=== PATIENT | female | born 1975 | race Caucasian/White ===

== ENCOUNTER 2017-09-08 14:33 | Emergency (ER) | payer OTHER ==
[~2017-09-08 14:33] MED LIST: ACET325 PO; ALBU90OI INH; ALPR1 PO; BCP; CHLO100 PO; CLON.1 PO; CODGUAEL PO; CYCL10 PO; DOXY100 PO; DULO60 PO; ESTR2 PO; FISH1000 PO; GABA100 PO; GABA300 PO; HYDACE5 PO; HYDPAM50 PO; NAPR500 PO; OMEP20ER PO; ORACON PO; OXYACE5T PO; OXYC1TAB11 PO; PROP10 PO; QUET300 PO; RESPIRDAL; RESTLESS LEG MED; RISP2 PO; RXCYCL10 PO; Restoril30 MG PO; SAPHRIS; TOLT2ER PO; ZOLP10 PO; [UNRECOGNIZED DRUG - REMARK]
== END 2017-09-08 15:10 | disposition left against medical advice (07) ==
LOC: ER 14:33
DX: Z53.21 Procedure and treatment not carried out due to patient leaving prior to being seen by health care provider (principal)

== ENCOUNTER 2017-12-05 05:57 | Day surgery (SDC) | payer MEDICARE, OTHER ==
[~2017-12-05] VITALS: Ht 170.2 cm; Wt 107.0 kg
[~2017-12-05 05:57] MED LIST changes: +ARIP20 PO; +ARIP30 PO; +LITH300C PO; +LORA1 PO; +MIRT15 PO; +MUPIROCIN1 GM TOP
== END 2017-12-05 10:29 | disposition home or self-care (01) ==
LOC: ORSCMMR 05:57 → ORD 07:30 → ORSCMMR 10:29
PROVIDERS: Surgery
PROC: 0WUF0JZ Supplement Abdominal Wall with Synthetic Substitute, Open Approach (ICD-10-PCS; principal; 2017-12-05 07:30)
DX: K42.9 Umbilical hernia without obstruction or gangrene (principal); B19.20 Unspecified viral hepatitis C without hepatic coma; F31.9 Bipolar disorder, unspecified; E78.00 Pure hypercholesterolemia, unspecified; F17.210 Nicotine dependence, cigarettes, uncomplicated; Z79.899 Other long term (current) drug therapy
CPT/HCPCS: 88305; C1781; J0690; J1100; J1885; J2250; J2405; J3010; J7120

== ENCOUNTER 2017-12-13 11:58 | Emergency (ER) | payer MEDICARE, OTHER ==
[~2017-12-13] VITALS: Ht 170.2 cm; Wt 90.7 kg
[2017-12-13] MEDS ORDERED: ARIP10 PO (12:07)
[2017-12-13 12:42] LABS: BASOPHILS ABSOLUTE AUTO 0.08 K/mm3 (0.00-0.23); BASOPHILS PERCENT AUTO 1 % (0-2); EOSINOPHILS ABSOLUTE AUTO 0.39 K/mm3 (0.00-0.68); EOSINOPHILS PERCENT AUTO 4 % (0-6); Hematocrit 46.5 % (33.0-51.0); Hemoglobin 15.6 g/dL (11.5-16.0); IMMATURE GRAN ABSOLUTE AUTO 0.05 K/mm3 (0.00-0.10); IMMATURE GRAN PERCENT AUTO 1 % (0-1); LYMPHOCYTES PERCENT AUTO 17 % (21-46); MONOCYTES ABSOLUTE AUTO 0.89 K/mm3 (0.16-1.47); MONOCYTES PERCENT AUTO 8 % (4-13); Mean Corpuscular HGB 29.5 pg (26.0-34.0); Mean Corpuscular HGB Conc 33.5 g/dL (31.5-36.5); Mean Corpuscular Volume 88 fL (80-100); Mean Platelet Volume 9.6 fL (9.1-12.4); NEUTROPHILS ABSOLUTE AUTO 7.69 K/mm3 (1.96-9.15); NEUTROPHILS PERCENT AUTO 71 % (41-73); Platelet Count 422 K/mm3 (150-400); RDW Coefficient Variation 12.2 % (11.7-14.2); RDW Standard Deviation 39.2 fL (35.1-46.3); Red Blood Cell Count 5.28 M/mm3 (3.80-5.20)
[2017-12-13 12:58] LABS: Alanine Aminotransfer (ALT/SGP 61 U/L (12-78); Albumin, Blood 3.8 g/dL (3.4-5.0); Alk Phos 78 U/L (50-136); Anion Gap 7 mmol/L (6-16); Aspartate Aminotrans (AST/SGOT 38 U/L (12-37); Bilirubin, Total 1.4 mg/dL (0.1-1.0); Blood Urea Nitrogen 11 mg/dL (8-24); Bun/Creatinine Ratio 12.5 (12.0-20.0); CO2, Blood 27 mmol/L (21-32); Calcium, Blood 9.7 mg/dL (8.5-10.1); Chloride, Blood 102 mmol/L (98-108); Creatinine, Blood 0.88 mg/dL (0.40-1.00); Globulin, Blood 3.9 g/dL (2.2-4.0); Glomerular Filtration Rate >60 (60-); Glucose, Blood 91 mg/dL (70-99); Potassium, Blood 4.1 mmol/L (3.5-5.5); Sodium, Blood 136 mmol/L (136-145); Total Protein, Blood 7.7 g/dL (6.4-8.2)
[2017-12-13] MEDS ORDERED: Zofran4 MG PO (14:33)
== END 2017-12-13 14:58 | disposition home or self-care (01) ==
LOC: ER 11:58
PROVIDERS: Emergency Medicine
DX: G89.18 Other acute postprocedural pain (principal); R10.9 Unspecified abdominal pain; R11.2 Nausea with vomiting, unspecified; Z98.890 Other specified postprocedural states; Z88.2 Allergy status to sulfonamides; Z88.8 Allergy status to other drugs, medicaments and biological substances; Z79.899 Other long term (current) drug therapy; F31.9 Bipolar disorder, unspecified; F20.9 Schizophrenia, unspecified; F17.200 Nicotine dependence, unspecified, uncomplicated
CPT/HCPCS: 36415; 80053; 85025; 96361; 96374; 99283-25; J2405; J7030

== ENCOUNTER → 2017-12-15 | Outpatient (CLI) | payer MEDICARE, OTHER ==
[~2017-12-15] MED LIST changes: +ARIP10 PO; +Zofran4 MG PO
[2017-12-15 10:43] LABS: BASOPHILS PERCENT AUTO 1 % (0-2); EOSINOPHILS ABSOLUTE AUTO 0.41 K/mm3 (0.00-0.68); EOSINOPHILS PERCENT AUTO 5 % (0-6); Hematocrit 42.9 % (33.0-51.0); Hemoglobin 14.8 g/dL (11.5-16.0); IMMATURE GRAN ABSOLUTE AUTO 0.05 K/mm3 (0.00-0.10); IMMATURE GRAN PERCENT AUTO 1 % (0-1); LYMPHOCYTES ABSOLUTE AUTO 1.78 K/mm3 (0.84-5.20); LYMPHOCYTES PERCENT AUTO 21 % (21-46); MONOCYTES ABSOLUTE AUTO 0.74 K/mm3 (0.16-1.47); MONOCYTES PERCENT AUTO 9 % (4-13); Mean Corpuscular HGB 30.5 pg (26.0-34.0); Mean Corpuscular HGB Conc 34.5 g/dL (31.5-36.5); Mean Corpuscular Volume 89 fL (80-100); Mean Platelet Volume 9.7 fL (9.1-12.4); NEUTROPHILS ABSOLUTE AUTO 5.27 K/mm3 (1.96-9.15); NEUTROPHILS PERCENT AUTO 63 % (41-73); Platelet Count 393 K/mm3 (150-400); RDW Coefficient Variation 12.8 % (11.7-14.2); RDW Standard Deviation 41.4 fL (35.1-46.3); Red Blood Cell Count 4.85 M/mm3 (3.80-5.20); White Blood Cell Count 8.35 K/mm3 (4.00-11.30)
[2017-12-15 11:03] LABS: Alanine Aminotransfer (ALT/SGP 46 U/L (12-78); Albumin, Blood 3.6 g/dL (3.4-5.0); Albumin/Globulin Ratio 1.2 (0.8-1.8); Alk Phos 70 U/L (40-126); Anion Gap 10 mmol/L (6-16); Aspartate Aminotrans (AST/SGOT 25 U/L (12-37); Bilirubin, Total 0.7 mg/dL (0.1-1.0); Blood Urea Nitrogen 11 mg/dL (8-24); Bun/Creatinine Ratio 12.1 (12.0-20.0); CO2, Blood 25 mmol/L (21-32); Calcium, Blood 9.6 mg/dL (8.5-10.1); Chloride, Blood 105 mmol/L (98-108); Creatinine, Blood 0.91 mg/dL (0.40-1.00); Globulin, Blood 3.1 g/dL (2.2-4.0); Glomerular Filtration Rate >60 (60-); Glucose, Blood 100 mg/dL (70-99); Potassium, Blood 4.2 mmol/L (3.5-5.5); Sodium, Blood 140 mmol/L (136-145); Thyroid Stimulating Hormone 2.446 uIU/mL (0.360-4.800); Total Protein, Blood 6.7 g/dL (6.4-8.2)
== END | disposition home or self-care (01) ==
LOC: LAB SHORT 10:35 → LAB EV 10:35
PROVIDERS: Physician Assistant
DX: R53.83 Other fatigue (principal); R20.2 Paresthesia of skin
CPT/HCPCS: 80053; 82607; 82746; 84443; 85025

== ENCOUNTER 2017-12-28 14:58 | Emergency (ER) | payer MEDICARE, OTHER ==
[~2017-12-28] VITALS: Ht 170.2 cm; Wt 99.8 kg
[2017-12-28 16:25] LABS: BASOPHILS PERCENT AUTO 1 % (0-2); EOSINOPHILS ABSOLUTE AUTO 0.72 K/mm3 (0.00-0.68); EOSINOPHILS PERCENT AUTO 6 % (0-6); Hematocrit 44.4 % (33.0-51.0); Hemoglobin 15.2 g/dL (11.5-16.0); IMMATURE GRAN ABSOLUTE AUTO 0.05 K/mm3 (0.00-0.10); IMMATURE GRAN PERCENT AUTO 0 % (0-1); LYMPHOCYTES ABSOLUTE AUTO 2.26 K/mm3 (0.84-5.20); LYMPHOCYTES PERCENT AUTO 20 % (21-46); MONOCYTES ABSOLUTE AUTO 0.74 K/mm3 (0.16-1.47); MONOCYTES PERCENT AUTO 7 % (4-13); Mean Corpuscular HGB 30.5 pg (26.0-34.0); Mean Corpuscular HGB Conc 34.2 g/dL (31.5-36.5); Mean Corpuscular Volume 89 fL (80-100); Mean Platelet Volume 9.2 fL (9.1-12.4); NEUTROPHILS PERCENT AUTO 66 % (41-73); Platelet Count 417 K/mm3 (150-400); RDW Coefficient Variation 12.6 % (11.7-14.2); RDW Standard Deviation 41.3 fL (35.1-46.3); Red Blood Cell Count 4.98 M/mm3 (3.80-5.20); White Blood Cell Count 11.27 K/mm3 (4.00-11.30)
[2017-12-28 16:49] LABS: Alanine Aminotransfer (ALT/SGP 53 U/L (12-78); Albumin, Blood 3.6 g/dL (3.4-5.0); Alk Phos 75 U/L (50-136); Anion Gap 7 mmol/L (6-16); Aspartate Aminotrans (AST/SGOT 32 U/L (12-37); Blood Urea Nitrogen 10 mg/dL (8-24); Bun/Creatinine Ratio 9.9 (12.0-20.0); CO2, Blood 26 mmol/L (21-32); Calcium, Blood 9.1 mg/dL (8.5-10.1); Chloride, Blood 106 mmol/L (98-108); Creatinine, Blood 1.01 mg/dL (0.40-1.00); Ethanol (Alcohol), Blood, Med <3 mg/dL; Free Thyroxine 0.95 ng/dL (0.70-1.60); Globulin, Blood 3.6 g/dL (2.2-4.0); Glomerular Filtration Rate >60 (60-); Glucose, Blood 94 mg/dL (70-99); Potassium, Blood 3.8 mmol/L (3.5-5.5); Salicylate <1.7 mg/dL (2.8-20.0); Sodium, Blood 139 mmol/L (136-145); Total Protein, Blood 7.2 g/dL (6.4-8.2)
[2017-12-28 16:54] LABS: Acetaminophen, Random <2.0 ug/mL (10.0-30.0)
== END 2017-12-28 17:54 | disposition home or self-care (01) ==
LOC: ER 14:58
PROVIDERS: Physician Assistant
DX: R79.89 Other specified abnormal findings of blood chemistry (principal); F31.9 Bipolar disorder, unspecified; F20.9 Schizophrenia, unspecified; F17.210 Nicotine dependence, cigarettes, uncomplicated; Z88.8 Allergy status to other drugs, medicaments and biological substances; Z88.2 Allergy status to sulfonamides; Z79.899 Other long term (current) drug therapy
CPT/HCPCS: 36415; 80053; 84439; 84443; 85025; 93005; 93010; 96361; 96374; 99283-25; G0480; J2405; J7030

== ENCOUNTER → 2017-12-28 | Outpatient (CLI) | payer MEDICARE, OTHER ==
[2017-12-28 14:09] LABS: Lithium 1.85 mmol/L (0.60-1.20)
== END | disposition home or self-care (01) ==
LOC: LAB SHORT 13:08 → LAB EV 13:08
PROVIDERS: Physician Assistant
DX: F30.9 Manic episode, unspecified (principal)
CPT/HCPCS: 80178

== ENCOUNTER → 2018-01-02 | Outpatient (CLI) | payer MEDICARE, OTHER ==
[2018-01-02 12:54] LABS: BASOPHILS ABSOLUTE AUTO 0.09 K/mm3 (0.00-0.23); BASOPHILS PERCENT AUTO 1 % (0-2); EOSINOPHILS ABSOLUTE AUTO 0.25 K/mm3 (0.00-0.68); EOSINOPHILS PERCENT AUTO 4 % (0-6); Hematocrit 43.8 % (33.0-51.0); Hemoglobin 14.7 g/dL (11.5-16.0); IMMATURE GRAN ABSOLUTE AUTO 0.03 K/mm3 (0.00-0.10); IMMATURE GRAN PERCENT AUTO 0 % (0-1); LYMPHOCYTES ABSOLUTE AUTO 1.44 K/mm3 (0.84-5.20); LYMPHOCYTES PERCENT AUTO 20 % (21-46); MONOCYTES ABSOLUTE AUTO 0.62 K/mm3 (0.16-1.47); MONOCYTES PERCENT AUTO 9 % (4-13); Mean Corpuscular HGB 29.8 pg (26.0-34.0); Mean Corpuscular HGB Conc 33.6 g/dL (31.5-36.5); Mean Corpuscular Volume 89 fL (80-100); Mean Platelet Volume 9.5 fL (9.1-12.4); NEUTROPHILS ABSOLUTE AUTO 4.68 K/mm3 (1.96-9.15); NEUTROPHILS PERCENT AUTO 66 % (41-73); Platelet Count 459 K/mm3 (150-400); RDW Coefficient Variation 12.7 % (11.7-14.2); RDW Standard Deviation 41.5 fL (35.1-46.3); Red Blood Cell Count 4.93 M/mm3 (3.80-5.20); White Blood Cell Count 7.11 K/mm3 (4.00-11.30)
[2018-01-02 13:14] LABS: Alanine Aminotransfer (ALT/SGP 49 U/L (12-78); Albumin, Blood 3.8 g/dL (3.4-5.0); Albumin/Globulin Ratio 1.1 (0.8-1.8); Alk Phos 74 U/L (50-136); Anion Gap 10 mmol/L (6-16); Aspartate Aminotrans (AST/SGOT 32 U/L (12-37); Bilirubin, Total 0.9 mg/dL (0.1-1.0); Blood Urea Nitrogen 13 mg/dL (8-24); Bun/Creatinine Ratio 17.3 (12.0-20.0); CO2, Blood 23 mmol/L (21-32); Calcium, Blood 9.2 mg/dL (8.5-10.1); Chloride, Blood 108 mmol/L (98-108); Creatinine, Blood 0.75 mg/dL (0.40-1.00); Globulin, Blood 3.5 g/dL (2.2-4.0); Glomerular Filtration Rate >60 (60-); Glucose, Blood 95 mg/dL (70-99); Potassium, Blood 3.9 mmol/L (3.5-5.5); Sodium, Blood 141 mmol/L (136-145); Total Protein, Blood 7.3 g/dL (6.4-8.2)
[2018-01-02 13:18] LABS: Lithium <0.20 mmol/L (0.60-1.20)
== END ==
LOC: LAB SHORT 11:30
PROVIDERS: Registered Nurse
DX: Z51.81 Encounter for therapeutic drug level monitoring (principal); Z79.899 Other long term (current) drug therapy
CPT/HCPCS: 80053; 80178; 85025

== ENCOUNTER → 2018-02-16 | Outpatient (CLI) | payer MEDICARE, OTHER ==
[2018-02-16 09:57] LABS: BASOPHILS ABSOLUTE AUTO 0.06 K/mm3 (0.00-0.23); BASOPHILS PERCENT AUTO 1 % (0-2); EOSINOPHILS ABSOLUTE AUTO 0.22 K/mm3 (0.00-0.68); EOSINOPHILS PERCENT AUTO 3 % (0-6); Hematocrit 42.5 % (33.0-51.0); Hemoglobin 14.6 g/dL (11.5-16.0); IMMATURE GRAN ABSOLUTE AUTO 0.03 K/mm3 (0.00-0.10); IMMATURE GRAN PERCENT AUTO 0 % (0-1); LYMPHOCYTES ABSOLUTE AUTO 1.33 K/mm3 (0.84-5.20); LYMPHOCYTES PERCENT AUTO 20 % (21-46); MONOCYTES ABSOLUTE AUTO 0.58 K/mm3 (0.16-1.47); MONOCYTES PERCENT AUTO 9 % (4-13); Mean Corpuscular HGB 31.1 pg (26.0-34.0); Mean Corpuscular HGB Conc 34.4 g/dL (31.5-36.5); Mean Corpuscular Volume 90 fL (80-100); Mean Platelet Volume 9.2 fL (9.1-12.4); NEUTROPHILS ABSOLUTE AUTO 4.51 K/mm3 (1.96-9.15); NEUTROPHILS PERCENT AUTO 67 % (41-73); Platelet Count 355 K/mm3 (150-400); RDW Coefficient Variation 12.6 % (11.7-14.2); RDW Standard Deviation 41.9 fL (35.1-46.3); White Blood Cell Count 6.73 K/mm3 (4.00-11.30)
[2018-02-16 10:21] LABS: Alanine Aminotransfer (ALT/SGP 57 U/L (12-78); Albumin, Blood 3.8 g/dL (3.4-5.0); Albumin/Globulin Ratio 1.1 (0.8-1.8); Alk Phos 57 U/L (40-126); Anion Gap 8 mmol/L (6-16); Aspartate Aminotrans (AST/SGOT 37 U/L (12-37); Bilirubin, Total 1.1 mg/dL (0.1-1.0); Blood Urea Nitrogen 16 mg/dL (8-24); Bun/Creatinine Ratio 18.2 (12.0-20.0); CO2, Blood 28 mmol/L (21-32); Calcium, Blood 9.2 mg/dL (8.5-10.1); Chloride, Blood 103 mmol/L (98-108); Creatinine, Blood 0.88 mg/dL (0.40-1.00); Globulin, Blood 3.4 g/dL (2.2-4.0); Glomerular Filtration Rate >60 (60-); Glucose, Blood 86 mg/dL (70-99); Potassium, Blood 3.9 mmol/L (3.5-5.5); Sodium, Blood 139 mmol/L (136-145); Total Protein, Blood 7.2 g/dL (6.4-8.2); Troponin I <0.017 ng/mL (0.000-0.040)
== END | disposition home or self-care (01) ==
LOC: LAB SHORT 09:49 → LAB EV 09:49
PROVIDERS: Physician Assistant
DX: R07.9 Chest pain, unspecified (principal); R00.2 Palpitations
CPT/HCPCS: 80053; 84443; 84484; 85025

== ENCOUNTER → 2018-02-21 | Outpatient (CLI) | payer MEDICARE, OTHER ==
[2018-02-22 09:49] LABS: Candida species (DNA Probe) Negative (NEGATIVE); G. vaginalis (DNA Probe) Negative (NEGATIVE); T. vaginalis (DNA Probe) Negative (NEGATIVE)
== END ==
LOC: LAB SHORT 17:16 → LAB EV 17:16
PROVIDERS: Physician Assistant
DX: N89.8 Other specified noninflammatory disorders of vagina (principal)
CPT/HCPCS: 87070; 87205; 87480; 87510; 87660

== ENCOUNTER 2018-04-10 11:45 | Observation (INO) | payer MEDICARE, OTHER ==
[~2018-04-10] VITALS: Ht 170.2 cm; Wt 104.3 kg
[~2018-04-10 11:45] MED LIST changes: +HYDPAM25 PO; +MONDOXYNE NL100 MG PO; +Macrobid 100 M100 MG PO; +Permethrin60 GM; +Permethrin60 GM TOP; +TEMA7.5 PO
[2018-04-10 14:19] LABS: Source, Urine Clean Catch
[2018-04-10 14:36] LABS: Appearance, Urine Clear (Clear); Bilirubin, Urine Neg (Neg); Blood, Urine Neg (Neg); Color, Urine Yellow (P-Yellow); Glucose Qualitative, Urine Neg (Neg); Ketones, Urine Neg (Neg); Leukocyte Esterase, Urine Neg (Neg); Nitrite, Urine Neg (Neg); Protein, Urine Neg (Neg); Specific Gravity, Urine 1.005 (1.003-1.022); Urobilinogen, Urine NORM (Normal); pH, Urine 6.5 (5.0-8.0)
[2018-04-10 14:43] LABS: BASOPHILS ABSOLUTE AUTO 0.08 K/mm3 (0.00-0.23); BASOPHILS PERCENT AUTO 1 % (0-2); EOSINOPHILS ABSOLUTE AUTO 0.23 K/mm3 (0.00-0.68); EOSINOPHILS PERCENT AUTO 3 % (0-6); Hematocrit 43.1 % (33.0-51.0); Hemoglobin 14.4 g/dL (11.5-16.0); IMMATURE GRAN ABSOLUTE AUTO 0.04 K/mm3 (0.00-0.10); IMMATURE GRAN PERCENT AUTO 1 % (0-1); LYMPHOCYTES ABSOLUTE AUTO 2.09 K/mm3 (0.84-5.20); LYMPHOCYTES PERCENT AUTO 29 % (21-46); MONOCYTES PERCENT AUTO 7 % (4-13); Mean Corpuscular HGB 30.3 pg (26.0-34.0); Mean Corpuscular HGB Conc 33.4 g/dL (31.5-36.5); Mean Corpuscular Volume 91 fL (80-100); NEUTROPHILS ABSOLUTE AUTO 4.32 K/mm3 (1.96-9.15); NEUTROPHILS PERCENT AUTO 59 % (41-73); Platelet Count 417 K/mm3 (150-400); RDW Standard Deviation 39.7 fL (35.1-46.3); Red Blood Cell Count 4.75 M/mm3 (3.80-5.20); White Blood Cell Count 7.26 K/mm3 (4.00-11.30)
[2018-04-10 15:05] LABS: Alanine Aminotransfer (ALT/SGP 85 U/L (12-78); Albumin, Blood 3.8 g/dL (3.4-5.0); Albumin/Globulin Ratio 1.1 (0.8-1.8); Alk Phos 71 U/L (50-136); Anion Gap 6 mmol/L (6-16); Aspartate Aminotrans (AST/SGOT 58 U/L (12-37); Bilirubin, Total 0.6 mg/dL (0.1-1.0); Blood Urea Nitrogen 16 mg/dL (8-24); Bun/Creatinine Ratio 18.3 (12.0-20.0); CO2, Blood 28 mmol/L (21-32); Calcium, Blood 9.3 mg/dL (8.5-10.1); Chloride, Blood 107 mmol/L (98-108); Creatinine, Blood 0.87 mg/dL (0.40-1.00); Ethanol (Alcohol), Blood, Med <3 mg/dL; Globulin, Blood 3.6 g/dL (2.2-4.0); Glomerular Filtration Rate >60 (60-); Glucose, Blood 79 mg/dL (70-99); Potassium, Blood 4.1 mmol/L (3.5-5.5); Salicylate <1.7 mg/dL (2.8-20.0); Sodium, Blood 141 mmol/L (136-145); Total Protein, Blood 7.4 g/dL (6.4-8.2)
[2018-04-10 15:12] LABS: Acetaminophen, Random <2.0 ug/mL (10.0-30.0)
[2018-04-10 15:16] LABS: U Amphetamine Screen Not Detected; U Barbituate Screen Not Detected; U Benzodiazapine Screen DETECTED; U Buprenorphine Screen Not Detected; U Cannabinoids Screen Not Detected; U Cocaine Screen Not Detected; U Methadone Screen Not Detected; U Methamphetamine Screen Not Detected; U Opiates Screen Not Detected; U Oxycodone Screen Not Detected; U Phencyclidine Screen Not Detected; U Propoxyphene Screen Not Detected
[2018-04-11] MEDS ORDERED: LATUDA40 MG PO (10:28)
== END 2018-04-11 10:38 | disposition home or self-care (01) ==
LOC: ER 11:45 → EOR 11:46
PROVIDERS: Emergency Medicine
DX: R45.851 Suicidal ideations (principal); F31.4 Bipolar disorder, current episode depressed, severe, without psychotic features; F20.9 Schizophrenia, unspecified; F43.10 Post-traumatic stress disorder, unspecified; F60.3 Borderline personality disorder; F17.200 Nicotine dependence, unspecified, uncomplicated; Z88.2 Allergy status to sulfonamides; Z88.8 Allergy status to other drugs, medicaments and biological substances
CPT/HCPCS: 80053; 80178; 81003; 81025; 84439; 84443; 85025; 99285; G0378; G0480; Q3014

== ENCOUNTER → 2018-08-01 | Outpatient (CLI) | payer MEDICARE, OTHER ==
[~2018-08-01] MED LIST changes: +LATUDA40 MG PO; +ONDA4ODT MM
[2018-08-02 08:43] LABS: Candida species (DNA Probe) Negative (NEGATIVE); G. vaginalis (DNA Probe) Negative (NEGATIVE); T. vaginalis (DNA Probe) Negative (NEGATIVE)
== END ==
LOC: LAB SHORT 11:30 → LAB EV 11:30
PROVIDERS: Physician Assistant
DX: N39.0 Urinary tract infection, site not specified (principal); B37.3 Candidiasis of vulva and vagina; Z72.51 High risk heterosexual behavior
CPT/HCPCS: 87077; 87086; 87186; 87480; 87510; 87660

== ENCOUNTER 2018-09-21 20:59 | Emergency (ER) | payer MEDICARE, OTHER ==
[~2018-09-21] VITALS: Ht 170.2 cm; Wt 113.4 kg
== END 2018-09-21 22:38 | disposition home or self-care (01) ==
LOC: ER 20:59
DX: S51.851A Open bite of right forearm, initial encounter (principal); W54.0XXA Bitten by dog, initial encounter; Z88.2 Allergy status to sulfonamides; Z88.8 Allergy status to other drugs, medicaments and biological substances; Z79.899 Other long term (current) drug therapy; F31.9 Bipolar disorder, unspecified; F20.9 Schizophrenia, unspecified; Z87.891 Personal history of nicotine dependence
CPT/HCPCS: 12002; 90471; 90714; 99283-25; A9270

== ENCOUNTER 2018-10-06 18:42 | Emergency (ER) | payer MEDICARE, OTHER ==
[~2018-10-06] VITALS: Ht 170.2 cm; Wt 122.0 kg
[2018-10-06 20:41] LABS: BASOPHILS ABSOLUTE AUTO 0.09 K/mm3 (0.00-0.23); BASOPHILS PERCENT AUTO 1 % (0-2); EOSINOPHILS ABSOLUTE AUTO 0.23 K/mm3 (0.00-0.68); EOSINOPHILS PERCENT AUTO 3 % (0-6); Hematocrit 43.1 % (33.0-51.0); Hemoglobin 14.2 g/dL (11.5-16.0); IMMATURE GRAN ABSOLUTE AUTO 0.03 K/mm3 (0.00-0.10); IMMATURE GRAN PERCENT AUTO 0 % (0-1); LYMPHOCYTES ABSOLUTE AUTO 2.57 K/mm3 (0.84-5.20); LYMPHOCYTES PERCENT AUTO 32 % (21-46); MONOCYTES PERCENT AUTO 9 % (4-13); Mean Corpuscular HGB Conc 32.9 g/dL (31.5-36.5); Mean Corpuscular Volume 91 fL (80-100); Mean Platelet Volume 9.4 fL (9.1-12.4); NEUTROPHILS ABSOLUTE AUTO 4.32 K/mm3 (1.96-9.15); NEUTROPHILS PERCENT AUTO 54 % (41-73); Platelet Count 424 K/mm3 (150-400); RDW Coefficient Variation 12.3 % (11.7-14.2); RDW Standard Deviation 41.1 fL (35.1-46.3); Red Blood Cell Count 4.73 M/mm3 (3.80-5.20); White Blood Cell Count 7.94 K/mm3 (4.00-11.30)
[2018-10-06 20:58] LABS: Alanine Aminotransfer (ALT/SGP 55 U/L (12-78); Albumin, Blood 3.9 g/dL (3.4-5.0); Albumin/Globulin Ratio 1.1 (0.8-1.8); Alk Phos 63 U/L (50-136); Anion Gap 7 mmol/L (6-16); Aspartate Aminotrans (AST/SGOT 37 U/L (12-37); Bilirubin, Total 0.4 mg/dL (0.1-1.0); Blood Urea Nitrogen 19 mg/dL (8-24); Bun/Creatinine Ratio 20.5 (12.0-20.0); CO2, Blood 27 mmol/L (21-32); Calcium, Blood 9.4 mg/dL (8.5-10.1); Chloride, Blood 107 mmol/L (98-108); Creatinine, Blood 0.93 mg/dL (0.40-1.00); Globulin, Blood 3.6 g/dL (2.2-4.0); Glomerular Filtration Rate >60 (60-); Glucose, Blood 86 mg/dL (70-99); Sodium, Blood 141 mmol/L (136-145); Total Protein, Blood 7.5 g/dL (6.4-8.2)
== END 2018-10-06 21:50 | disposition home or self-care (01) ==
LOC: ER 18:42
PROVIDERS: Physician Assistant
DX: G43.909 Migraine, unspecified, not intractable, without status migrainosus (principal); F31.9 Bipolar disorder, unspecified; F20.9 Schizophrenia, unspecified; Z88.2 Allergy status to sulfonamides; Z88.1 Allergy status to other antibiotic agents; Z88.8 Allergy status to other drugs, medicaments and biological substances
CPT/HCPCS: 36415; 80053; 80178; 85025; 99283

== ENCOUNTER 2018-10-11 17:35 | Emergency (ER) | payer MEDICARE, OTHER ==
[~2018-10-11] VITALS: Ht 170.2 cm; Wt 113.4 kg
[2018-10-11 18:34] LABS: BASOPHILS ABSOLUTE AUTO 0.07 K/mm3 (0.00-0.23); BASOPHILS PERCENT AUTO 1 % (0-2); EOSINOPHILS ABSOLUTE AUTO 0.27 K/mm3 (0.00-0.68); EOSINOPHILS PERCENT AUTO 3 % (0-6); Hematocrit 42.2 % (33.0-51.0); IMMATURE GRAN ABSOLUTE AUTO 0.03 K/mm3 (0.00-0.10); IMMATURE GRAN PERCENT AUTO 0 % (0-1); LYMPHOCYTES ABSOLUTE AUTO 2.36 K/mm3 (0.84-5.20); LYMPHOCYTES PERCENT AUTO 24 % (21-46); MONOCYTES ABSOLUTE AUTO 0.83 K/mm3 (0.16-1.47); MONOCYTES PERCENT AUTO 9 % (4-13); Mean Corpuscular HGB Conc 33.2 g/dL (31.5-36.5); Mean Corpuscular Volume 91 fL (80-100); Mean Platelet Volume 9.3 fL (9.1-12.4); NEUTROPHILS ABSOLUTE AUTO 6.26 K/mm3 (1.96-9.15); NEUTROPHILS PERCENT AUTO 64 % (41-73); Platelet Count 405 K/mm3 (150-400); RDW Standard Deviation 39.8 fL (35.1-46.3); Red Blood Cell Count 4.66 M/mm3 (3.80-5.20); White Blood Cell Count 9.82 K/mm3 (4.00-11.30)
[2018-10-11 19:02] LABS: Lithium 1.14 mmol/L (0.60-1.20)
[2018-10-11 19:17] LABS: Source, Urine Clean Catch
[2018-10-11 19:24] LABS: Blood, Urine 1+ (Neg); Glucose Qualitative, Urine Neg (Neg); Ketones, Urine 1+ (Neg); Leukocyte Esterase, Urine 1+ (Neg); Nitrite, Urine Neg (Neg); Protein, Urine 2+ (Neg); Specific Gravity, Urine 1.025 (1.003-1.022); Urobilinogen, Urine 1+ (Normal)
[2018-10-11 19:30] LABS: Alanine Aminotransfer (ALT/SGP 48 U/L (12-78); Albumin/Globulin Ratio 1.1 (0.8-1.8); Alk Phos 60 U/L (50-136); Anion Gap 9 mmol/L (6-16); Aspartate Aminotrans (AST/SGOT 30 U/L (12-37); Bilirubin, Total 1.2 mg/dL (0.1-1.0); Blood Urea Nitrogen 17 mg/dL (8-24); Bun/Creatinine Ratio 18.4 (12.0-20.0); CO2, Blood 25 mmol/L (21-32); Calcium, Blood 9.6 mg/dL (8.5-10.1); Chloride, Blood 105 mmol/L (98-108); Creatinine, Blood 0.92 mg/dL (0.40-1.00); Globulin, Blood 3.5 g/dL (2.2-4.0); Glomerular Filtration Rate >60 (60-); Glucose, Blood 87 mg/dL (70-99); Sodium, Blood 139 mmol/L (136-145); Total Protein, Blood 7.5 g/dL (6.4-8.2)
[2018-10-11 19:36] LABS: Appearance, Urine Cloudy (Clear); Bilirubin, Urine 1+ (Neg); Color, Urine Yellow (P-Yellow)
[2018-10-11 19:37] LABS: Bacteria Many /hpf; Red Blood Cells, Urine 0-2 /hpf (0-2); Squamous Epithelial Cells Many /hpf (Few)
== END 2018-10-11 19:49 | disposition home or self-care (01) ==
LOC: ER 17:35
PROVIDERS: Emergency Medicine; Physician Assistant
DX: F25.9 Schizoaffective disorder, unspecified (principal); Z87.891 Personal history of nicotine dependence
CPT/HCPCS: 36415; 80053; 80178; 81001; 85025; 87086; 99284

== ENCOUNTER → 2018-10-13 | Outpatient (CLI) | payer MEDICARE, OTHER ==
[2018-10-13 12:47] LABS: BASOPHILS ABSOLUTE AUTO 0.06 K/mm3 (0.00-0.23); BASOPHILS PERCENT AUTO 1 % (0-2); EOSINOPHILS ABSOLUTE AUTO 0.24 K/mm3 (0.00-0.68); EOSINOPHILS PERCENT AUTO 3 % (0-6); Hematocrit 42.7 % (33.0-51.0); Hemoglobin 14.2 g/dL (11.5-16.0); IMMATURE GRAN ABSOLUTE AUTO 0.02 K/mm3 (0.00-0.10); IMMATURE GRAN PERCENT AUTO 0 % (0-1); LYMPHOCYTES ABSOLUTE AUTO 1.32 K/mm3 (0.84-5.20); LYMPHOCYTES PERCENT AUTO 16 % (21-46); MONOCYTES PERCENT AUTO 7 % (4-13); Mean Corpuscular HGB Conc 33.3 g/dL (31.5-36.5); Mean Corpuscular Volume 90 fL (80-100); Mean Platelet Volume 9.8 fL (9.1-12.4); NEUTROPHILS ABSOLUTE AUTO 6.11 K/mm3 (1.96-9.15); NEUTROPHILS PERCENT AUTO 73 % (41-73); Platelet Count 352 K/mm3 (150-400); RDW Coefficient Variation 11.9 % (11.7-14.2); RDW Standard Deviation 39.5 fL (35.1-46.3); Red Blood Cell Count 4.74 M/mm3 (3.80-5.20); White Blood Cell Count 8.35 K/mm3 (4.00-11.30)
[2018-10-13 13:01] LABS: Alanine Aminotransfer (ALT/SGP 45 U/L (12-78); Albumin/Globulin Ratio 1.1 (0.8-1.8); Alk Phos 62 U/L (50-136); Anion Gap 2 mmol/L (6-16); Aspartate Aminotrans (AST/SGOT 23 U/L (12-37); Bilirubin, Total 1.4 mg/dL (0.1-1.0); Blood Urea Nitrogen 14 mg/dL (8-24); Bun/Creatinine Ratio 15.4 (12.0-20.0); CO2, Blood 29 mmol/L (21-32); Calcium, Blood 9.3 mg/dL (8.5-10.1); Chloride, Blood 106 mmol/L (98-108); Creatinine, Blood 0.91 mg/dL (0.40-1.00); Globulin, Blood 3.5 g/dL (2.2-4.0); Glomerular Filtration Rate >60 (60-); Glucose, Blood 89 mg/dL (70-99); Potassium, Blood 4.3 mmol/L (3.5-5.5); Sodium, Blood 137 mmol/L (136-145); Total Protein, Blood 7.5 g/dL (6.4-8.2)
== END | disposition home or self-care (01) ==
LOC: LAB 11:45 → LAB SHORT 11:45
PROVIDERS: Nurse Practitioner
DX: G43.809 Other migraine, not intractable, without status migrainosus (principal); R41.0 Disorientation, unspecified
CPT/HCPCS: 80053; 85025

== ENCOUNTER 2019-11-24 08:18 | Emergency (ER) | payer MEDICARE, OTHER ==
[~2019-11-24] VITALS: Ht 172.7 cm; Wt 99.8 kg
[2019-11-24] MEDS ORDERED: Alprazolam2 MG PO (08:40)
[2019-11-24] MEDS ORDERED: Lithium Carbon300 M2 PO (08:41)
== END 2019-11-24 08:42 | disposition home or self-care (01) ==
LOC: ER 08:18
DX: B86 Scabies (principal); Z88.2 Allergy status to sulfonamides; Z88.8 Allergy status to other drugs, medicaments and biological substances; Z88.1 Allergy status to other antibiotic agents; Z79.899 Other long term (current) drug therapy; F31.9 Bipolar disorder, unspecified; F20.9 Schizophrenia, unspecified; Z86.19 Personal history of other infectious and parasitic diseases
CPT/HCPCS: 99282

== ENCOUNTER 2019-11-25 06:16 | Emergency (ER) | payer MEDICARE, OTHER ==
[~2019-11-25] VITALS: Ht 170.2 cm; Wt 117.9 kg
[~2019-11-25 06:16] MED LIST changes: +Alprazolam2 MG PO; +Lithium Carbon300 M2 PO
== END 2019-11-25 06:52 | disposition home or self-care (01) ==
LOC: ER 06:16
DX: R20.2 Paresthesia of skin (principal); Z88.2 Allergy status to sulfonamides; Z88.8 Allergy status to other drugs, medicaments and biological substances; Z88.1 Allergy status to other antibiotic agents; Z86.19 Personal history of other infectious and parasitic diseases; Z87.891 Personal history of nicotine dependence
CPT/HCPCS: 99283

== ENCOUNTER 2019-11-27 08:40 | Observation (INO) | payer MEDICARE, OTHER ==
[~2019-11-27] VITALS: Ht 170.2 cm; Wt 104.3 kg
[2019-11-27] MEDS ORDERED: OLAN7.5 (09:27)
[2019-11-27 10:12] LABS: BASOPHILS ABSOLUTE AUTO 0.09 K/mm3 (0.00-0.23); BASOPHILS PERCENT AUTO 1 % (0-2); EOSINOPHILS PERCENT AUTO 3 % (0-6); Hematocrit 48.7 % (33.0-51.0); Hemoglobin 16.5 g/dL (11.5-16.0); IMMATURE GRAN ABSOLUTE AUTO 0.07 K/mm3 (0.00-0.10); IMMATURE GRAN PERCENT AUTO 1 % (0-1); LYMPHOCYTES ABSOLUTE AUTO 2.45 K/mm3 (0.84-5.20); LYMPHOCYTES PERCENT AUTO 20 % (21-46); MONOCYTES ABSOLUTE AUTO 1.11 K/mm3 (0.16-1.47); MONOCYTES PERCENT AUTO 9 % (4-13); Mean Corpuscular HGB 29.1 pg (26.0-34.0); Mean Corpuscular HGB Conc 33.9 g/dL (31.5-36.5); Mean Corpuscular Volume 86 fL (80-100); Mean Platelet Volume 9.8 fL (9.1-12.4); NEUTROPHILS ABSOLUTE AUTO 7.99 K/mm3 (1.96-9.15); NEUTROPHILS PERCENT AUTO 67 % (41-73); Platelet Count 513 K/mm3 (150-400); RDW Coefficient Variation 13.8 % (11.7-14.2); RDW Standard Deviation 42.8 fL (35.1-46.3); Red Blood Cell Count 5.67 M/mm3 (3.80-5.20); White Blood Cell Count 12.01 K/mm3 (4.00-11.30)
[2019-11-27 10:28] LABS: Alanine Aminotransfer (ALT/SGP 56 U/L (12-78); Albumin, Blood 4.8 g/dL (3.4-5.0); Albumin/Globulin Ratio 1.2 (0.8-1.8); Alk Phos 82 U/L (50-136); Anion Gap 8 mmol/L (6-16); Aspartate Aminotrans (AST/SGOT 96 U/L (12-37); Bilirubin, Total 1.6 mg/dL (0.1-1.0); Blood Urea Nitrogen 51 mg/dL (8-24); Bun/Creatinine Ratio 28.2 (12.0-20.0); CO2, Blood 24 mmol/L (21-32); Calcium, Blood 10.2 mg/dL (8.5-10.1); Chloride, Blood 104 mmol/L (98-108); Creatinine, Blood 1.81 mg/dL (0.40-1.00); Ethanol (Alcohol), Blood, Med <3 mg/dL; Glomerular Filtration Rate 32 (60-); Glucose, Blood 92 mg/dL (70-99); Potassium, Blood 3.3 mmol/L (3.5-5.5); Salicylate <1.7 mg/dL (2.8-20.0); Sodium, Blood 136 mmol/L (136-145); Total Protein, Blood 8.8 g/dL (6.4-8.2)
[2019-11-27 10:36] LABS: Acetaminophen, Random <2.0 ug/mL (10.0-30.0)
[2019-11-27 17:15] LABS: Lithium 1.18 mmol/L (0.60-1.20)
--- NOTE | 2019-11-28 03:42 | NUR ---
SUMMARY PT ARRIVED TO FLOOR AGITATED AND FIXATED ON SCABIES ON HER SKIN AND WORMS CRAWLING INSIDE OF HER. PT DID TAKE HER PO POTASSIUM AND ONE DOSE OF PO ZYPREXA. PT ALLOWED IV FLUIDS TO BE GIVEN. PT IS COOPERATIVE AT TIMES. PT IS TAKING IN SOME PO FLUIDS BUT BECOMES PARANOID OF SCABIES BEING IN WATER. PT EVENTUALLY FELL ASLEEP. PT CURRENTLY SLEEPING AND BREATHING EASY. PT IS ON CAMERA AND BED ALARM ON DUE TO PT BEING UNSTEADY AT TIMES. TM
[2019-11-28 06:49] LABS: BASOPHILS PERCENT AUTO 2 % (0-2); EOSINOPHILS ABSOLUTE AUTO 0.25 K/mm3 (0.00-0.68); EOSINOPHILS PERCENT AUTO 4 % (0-6); Hematocrit 39.1 % (33.0-51.0); Hemoglobin 13.2 g/dL (11.5-16.0); IMMATURE GRAN ABSOLUTE AUTO 0.02 K/mm3 (0.00-0.10); IMMATURE GRAN PERCENT AUTO 0 % (0-1); LYMPHOCYTES ABSOLUTE AUTO 2.24 K/mm3 (0.84-5.20); LYMPHOCYTES PERCENT AUTO 33 % (21-46); MONOCYTES ABSOLUTE AUTO 0.72 K/mm3 (0.16-1.47); MONOCYTES PERCENT AUTO 11 % (4-13); Mean Corpuscular HGB 29.3 pg (26.0-34.0); Mean Corpuscular HGB Conc 33.8 g/dL (31.5-36.5); Mean Corpuscular Volume 87 fL (80-100); Mean Platelet Volume 9.6 fL (9.1-12.4); NEUTROPHILS PERCENT AUTO 51 % (41-73); Platelet Count 363 K/mm3 (150-400); RDW Coefficient Variation 13.8 % (11.7-14.2); RDW Standard Deviation 44.3 fL (35.1-46.3); Red Blood Cell Count 4.51 M/mm3 (3.80-5.20); White Blood Cell Count 6.73 K/mm3 (4.00-11.30)
[2019-11-28 07:06] LABS: Albumin, Blood 3.2 g/dL (3.4-5.0); Anion Gap 5 mmol/L (6-16); Blood Urea Nitrogen 33 mg/dL (8-24); Bun/Creatinine Ratio 34.4 (12.0-20.0); CO2, Blood 22 mmol/L (21-32); Calcium, Blood 8.9 mg/dL (8.5-10.1); Chloride, Blood 113 mmol/L (98-108); Creatinine, Blood 0.96 mg/dL (0.40-1.00); Glomerular Filtration Rate >60 (60-); Glucose, Blood 82 mg/dL (70-99); Phosphorus, Blood 3.1 mg/dL (2.5-4.9); Potassium, Blood 3.8 mmol/L (3.5-5.5); Sodium, Blood 140 mmol/L (136-145)
--- NOTE | 2019-11-28 12:34 | NUR ---
Provided standby while BILINGUAL EXECUTIVE ASSISTANT assisted patient. Pt. announced several times she has scabies, and pointed to her arms. Patient was directive with staff regarding her privacy for disrobing for hygene care. Sheet given to pt to wrap herself, as she was concerned that her "butt nakedness" be observed by the camera monitors. Pt was cooperative and was not combativeor threatening in any way. She was concerned that her face was dirty, and washed face with washcloth given to her. She continued with delusional statements of " I scraped them off my teeth for evidence that they are growing, to show everyone". Patient presents with psychotic symptoms, talkative. Monica Lake, Behavior health Director
--- NOTE | 2019-11-28 18:34 | NUR ---
SHIFT SUMMARY: PT ON 2-MD HOLD; PSYCHOSIS, SCHIZO; IRRITABLE; UNCOOPERATIVE WITH CARE. MEDICATED FOR ANXIETY/AGITATION PER EMAR. FLUIDS D/C'd AFTER 2L INFUSED, PER HOSPITALIST (DR WU); ORAL INTAKE ENCOURAGED. AWAITING PLACEMENT IN PSYCH FACILITY. WCTM.
--- NOTE | 2019-11-28 19:40 | NUR ---
Called to meet with pt and debbi the pt advocate. Pt yelling and hsving frequent outburst today. Pt alet to self and place. Pt minimal blinking, repetative movments. states she is nauseated, and gretly fatiued she states she has not slept for days and is afraid to sleep. sy is fixated on having scabbes in lungs and gi tract and skin she sees thing crawling on her skin. Able to redirect when she escaltes. Angry and wants to see advocate becuse she needs three tubes of medication for scabes. Gave her therr tubes of ltion and heped her put it in her hair. Need frequent rediretion wants to hyper ventilate. Assisted with po bedadryl. difficlty for her to swallow due to fear. Able to get the to drink some sprite. Review of symptoms with nursing. security called and pt given IM injection will need repeat dosing to to facilitate sleep and break her thought pattern pt very exhausted from symtoms. may need further hydration to preserve renal function.. Dr montejo in knows pt well will follow up with supportive visits and symtom assessments.
--- NOTE | 2019-11-29 04:07 | NUR ---
SUMMARY PT HAS SLEPT FOR MOST OF SHIFT. PT WOKE UP EARLY TO VOID AND HAS BEEN AWAKE AND COMPLAINING OF SCABIES AND WORMS. PT REFUSED PM ZYPREXA. PT DOES GET AGITATED BUT IS REDIRECTABLE. PT CURRENTLY LAYING IN BED QUIETLY. CALL LIGHT IN REACH AND PT ON CAMERA.
[2019-11-29] MEDS ORDERED: IBUP800 PO (13:11)
--- NOTE | 2019-11-29 13:27 | NUR ---
Assisted in calming intervention as patient was yelling and verbally hostile with staff. Pt focuses on "scabies" and shos various places on her body where they "are crwling inside of her skin, and antennas popping out of her skin". She feels them crawling in her belly and wanting to come out of her mouth. Pt was able to calm at times, then would become loud and dramatic. She got out of bed and said'I'm gonna kill myself". She moved toward the window, "I can just jump out of here". She then got back in bed. Interventions of standing back and not directing her appear to work best. She is a patient with the [facility] team with [facility]. Nurse and this commercial loan underwriter spoke with [facility] and confirmed current med list, and that the scabies delusion is relatively new for the patient. [facility] report patient is assha and verbally aggressive, but has never been physically aggressive. Nurse reviewed med list with patient. Patient is hyper focused on tardive dyskinesia fear. Communicated with Dr. Chen re: [facility] call and TD fear. Patient is actively psychotic. She makes no attempt to leave her room or be physically aggressive. She is very loud and dramatic at times, but would lower her voice when reminded. Monica Lake M.Ed., [facility], Behavior Health Director
--- NOTE | 2019-11-29 19:27 | NUR ---
SHIFT SUMMARY: NO ACUTE CHANGES TO REPORT THIS SHIFT. PT A&O; IRRITABLE; PARANOID; VERBALLY ABUSIVE; FREQUENTLY UNCOOPERATIVE WITH CARE. MEDICATED FOR ANXIETY PER EMAR. MODERATE SI. AWAITING PLACEMENT IN PSYCH FACILITY. REPROT GIVEN TO ONCOMING RN.
--- NOTE | 2019-11-29 20:49 | NUR ---
At 2019, patient became very agitated, throwing towels, socks and flinging water out of the sink She began screaming out that we wouldn't take her to the bathroom. I insisted she get back into bed while I mopped up the water she had spilled out into the middle of the room as I was concerned that she would fall. Patient again started screaming that no one cared about her or her scabies. Getting increasingly agitated, a luz staley was called. Once security and staff arrived, patient got less loud and said "I just don't want to be tied up or given shots." At this point, the patient allowed this RN to give her her meds. (packages had to be opened and explained in front of her and juice brought in in an unopened container held with "clean paper towel" for her to open .
--- NOTE | 2019-11-29 20:59 | NUR ---
Patient remains a moderate risk on Suicide reassessment. No change from Previous. Patient room has been cleared of any items that she could harm herself with. Patient refused vital signs tonight, then during code staley, expressed that she was having chest pain. I told her we would need to get her vital signs in order to call the physician with her complaint of chest pain. She stated she guessed it was calming down since things were quieter now
--- NOTE | 2019-11-30 00:12 | NUR ---
Patient refused IV flush as she was convinced there was something "Scabies" in the flush. Showed patient flush which was in sealed package, but patient continued to be frightened and refused.
--- NOTE | 2019-11-30 08:17 | NUR ---
MANAGER MEDICAL WRITING SUMMARY Patient very agitated early part of shift until around midnight. Cordell richards was called around 2029 as patient was threatening to "Get the ... out. Very delusional and hysterical about scabies in and on her. Violently jerked away when touched by RN and ripped off her shirt saying, "Now you've got YOUR scabies on me too". Patient agreed to take all of her HS meds after security and several male RN's came in during the code Richards. Patient stated "I don't want to be pushed down and have needles poked at me". I'll take all of my meds." Patient would only take them if the unit doses were opened into her hand and the juice she swallowed them with if it was delivered unopened being held in a paper towel or napkin and the container dropped into her hands... after around 2400, the patient fell asleep and slept the rest of the shift
--- NOTE | 2019-11-30 08:30 | NUR ---
PT A/O TO SELF STATES IS BEING ATTACKED BY SCABIES T/O BODY. STATES ARE IN FEET. EVERY SPOT ON BODY. HAS SOME RASH UNDER LEFT BREAST. STATES IS ALL FROM SCABIES. QUITE FIXATED ON THIS. DENIES PAIN. H/R REG, NO MKURMER NOTED. NO TELE. LUNGS CLEAR, RESP EASY, UNLABORED. ON R.A. BT X4 LAST BM STATES 2 DAYS. VOIDS SBA TO BATHROOM. BED IN LOW POSITION, CALLLITE IN REACH, CALLS APPROP. IS ON Satya Inti Dharma WATCH. CAMERA MONITORING.
--- NOTE | 2019-11-30 11:32 | NUR ---
0900 PT STATES IS ON SI. RISK MOVED TO HIGH PER QUESTIONS. CALLED CHARGE, AND DR WU. SITTER SENT TO ROOM. PT IN BED. CONTINUES TO C/O SCABIES TUNNELING UNDER SKIN EVERYWHERE.
--- NOTE | 2019-11-30 12:40 | NUR ---
PT C/O ABD PAIN AND HIP PAIN. STATES TAKES IBUPROPHEN TID. CALLED DR WU. SHE CANNOT HAVE R/T DECREASED KIDNEY FUNCTION, AND MAY ALSO WORSEN ABD PN. WILL RELAY TO PT. TYLENOL IS BEST IN THIS SITUATION
--- NOTE | 2019-11-30 12:46 | NUR ---
OFFERED PT TYLENOL FOR PAIN, EXPLAINED REASON FOR NO IBUPROPHEN. PT NOT HAPPY. OFFERED TYLENOL. REFUSED. OFFERED BENADRYL. PT REFUSED. PT LYING IN BED.
--- NOTE | 2019-11-30 14:57 | NUR ---
PT AGAIN C/O PAIN. AGREED TO TAKE TYLENOL. ALSO WITH ITCHING HAS AGREED TO TAKE THE BENADRYL. DONE
--- NOTE | 2019-11-30 15:39 | NUR ---
PT STATES NO DIFFERENCE WITH MEDS GIVEN FOR PAIN. DOES STATES FEELS SOME MORE RELAXED, BUT NOTMUCH. BED IN LOW POSITION, CALL LITE IN REACH, SITTER AT DOOR
--- NOTE | 2019-11-30 15:48 | NUR ---
PT REPORTS NO BM FOR WEEKS. CHARTING INDICATES LAST BM 2 DAYS. PT DENIES. REQUESTS "SODIUM SOMETHING" FOR CLEANING OUT BOWELS. WILL SPEAK TO DR WHEN SHE COMES TO ROOM.
--- NOTE | 2019-11-30 17:16 | NUR ---
PT FIXATED AND COMPLAINING OF SCABIES T/O EVERY INTERACTION WITH PT. HAVE OBTAINED NYSTATIN FOR IRRITATION UNDER BREAST. PT STATES IS DEFINATELY SCABIES. DR DELEON TO BE MORE LIKELY YEASTY. DID GET PT TO AGREE TO TAKE BENEDRYL AND ATARAX TODAY. PT SOME CALMER. NO NEW CONCERNS AT THIS TIME. BED IN LOW POSITION, CALL LITE IN REACH, IS ON MONITOR AND 1&1 SITTER AT DOOR.
--- NOTE | 2019-11-30 18:20 | NUR ---
PT CONTINUES TO C/O SCABIES UNDER SKIN. THIS RN DOES NOT OBSERVE ANYTHING AT THIS TIME. OFFERING MEDICATIONS, PT REUSEING ZYPREXA BELIEVES IS ALERGIC. NOT RATIONAL. IS OKAY WITH ATARAX WHEN AVAILABLE.
--- NOTE | 2019-12-01 08:00 | NUR ---
PT PLEASANT, HOWEVER SOME CONFRONTATIONAL TODAY. DENIES PAIN. PT STATES ALLERGY TO ZYPREXA. DISCUSSED NO ALLERGY, BUT NOT ACCEPTING. PT CONTINUES TO BE HIGH ON SI. WILL NOT DISCLOSE PLAN OR HOW, BUT STATES DOES HAVE PLAN FOR ENDING LIFE. PT SHOWS MUCH IMPROVEMENT ON RASH UNDER LEFT BREAST. INDIO RN STATES LOOKED IRRITATED AND RED HER SHIFT, PT HAD PICKED ALL OLD SKIN OFF. NOW IS PINK, CLEAN. PT APPLYING NYSTATIN PER ORDERS. PT CONTINUES TO BE OBSESSED WITH SCABIES. NO NEW CONCERNS AT THIS TIME. H/R REG, NO MURMER NOTED. NO TELE. LUNGS CLEAR, RESP EASY, UNLABORED ON R.A. BT X4 LAST BM 2-3 DAYS PER CHART, PT STATES WEEKS. REFUSING TO EAT. DRINKS MINIMALLY. PT AMBULATES SELF TO BATHROOM. BED IN LOW POSITION, CALL LITE IN REACH, 1 ON 1 OBSERVATION FOR HIGH SI
--- NOTE | 2019-12-01 10:00 | NUR ---
[facility] CALLED, DAVID, CHECKING FOR PT STATUS. EXPLAINED PT STATES ALLERGY TO ZYPREXA, DAVID STATES IS NOT ALLERGIC. REQUESTING FURTHER NURSE NOTES. WILL PASS TO CARE PLANNING. HER PHONE. [phone].
--- NOTE | 2019-12-01 11:00 | NUR ---
PT C/O BUGS ON FLOOR. REQUESTED HOUSEKEEPING TO COME CLEAN. DONE
--- NOTE | 2019-12-01 11:30 | NUR ---
DR YOON HERMAN AND BAKARI FOR PT
--- NOTE | 2019-12-01 12:50 | NUR ---
PT AGAIN STRONGLY BELIEVES IS SCABIES ATTACKING HER. ADMIN ATARAX AND BENADRYL.
--- NOTE | 2019-12-01 15:27 | NUR ---
PT REFUSED COLACE AND MIRALAX
--- NOTE | 2019-12-01 17:58 | NUR ---
PT MOSTLY PLEASANT TODAY. PAIN MANAGED WITH AVAIL MEDS. CONTINUES TO STATE WILL KILL SELF. ALSO STATES SCABIES BUGS WILL KILL HER ALSO. NO NEW CONCERNS AT THIS TIME. PT REFUSING SOME MEDS BUT ACCEPTING ATARAX TYLENOL AND BENADRYL. BED IN LOW POSITION, CALL LITE IN REACH, 1 TO 1 SITTER AT DOOR.
--- NOTE | 2019-12-02 06:00 | NUR ---
ZIGZAG TOPSTITCHER SUMMARY This morning, patient woke agitated about lack of follow up with a GI specialist. She states pain in abdomen is likely from bleeding ulcers or the bugs eating her lower abdomen. Patient refused Zyprexa for the second night as she insists allergy. Slept most of the night waking twice to use the bathroom. Each time, she got very tearful and agitated talking about her internal and external infestation with scabies. She states that it "is a shame that [facility] allows Scabies Plants to be placed everywhere there are homeless people and stray animals. They just want to exterminate us all!" Patient also got very upset when she was told that someone from [facility] and said she took Zyprexa daily without allergic reaction. She became agitated and insisted on getting the name of the F... person at [facility] who was such a liar.
--- NOTE | 2019-12-02 10:20 | NUR ---
DR WU ORDERED NS AT 125/HR TO REPLACE SOME HYDRATION TO THE PATIENT. PATIENT REFUSED THE NS. DR WU CALLED AT 1000 AND INFORMED OF THIS. SPOKE WITH JAMILA FROM [facility] A FEW TIMES TO GIVE AN UPDATE ON PATIENT. JAMILA IS SPEAKING TO THE PATIENT AT THIS TIME.
--- NOTE | 2019-12-02 10:28 | NUR ---
ASSESSED THE PATIENT BEST I COULD, HOWEVER THE PATIENT WOULD NOT ALLOW ANY PHYSICAL TOUCH BY ME, IV NOT PROPERLY ASSESSED EITHER.
--- NOTE | 2019-12-02 11:09 | NUR ---
PATIENT CALLED ME IN AND ASKED IF I WOULD FLUSH HER IV. I ASKED IF I COULD ALSO CHANGE THE DRESSING AND SHE ALLOWED.
--- NOTE | 2019-12-02 16:23 | NUR ---
PATIENT HAS HAD A VERY ACTIVE DAY. ALL SHE TALKING ABOUT IS BEING INFESTED WITH PARASITES AND BEING EATEN ALIVE BY THEM. SHE REFUSES TO EAT AND WILL ONLY DRINK FLUIDS IN UNOPENED CONTAINERS. SHE BELIEVES THAT EVERYONE HAS A CONSPIRACY TO HURT/KILL HER BY POINSONING EVERYTHING SHE EATS AND IS GIVEN WITH SCABIES. SHE IS VERY UN-REDIRECTABLE. EASILY AGGITATED AND IRRITABLE. WAS ASSISTED INTO THE SHOWER. PATIENT IS IN BED FINISHING UP POST-SHOWER NOW. WILL CONTINUE TO MONITOR AND PROVIDE CARE NEEDED.
--- NOTE | 2019-12-02 19:18 | NUR ---
CALLED SCU MONITOR VERIFIED THAT THIS PT IS ON CAMERA
--- NOTE | 2019-12-03 04:11 | NUR ---
SHIFT SUMMARY ADMITTED FOR ARF. HIGH RISK SUICIDE PRECAUTIONS. 1:1 SITTER. FULL CODE. SHE IS INDEPENDENT IN ROOM, A&O X4, REGULAR DIET, RA. STATES THE SCABIES INFESTING HER BODY AND SKIN ARE TOO MUCH TO DEAL WITH. STATES SHE HAS A PLAN TO END HER LIFE. AWAITING PLACEMENT IN AN INPT PSYCH UNIT. PERTINENT HX: SCHIZOPHRENIA, BIPOLAR. SHE DID SLEEP THROUGHOUT MOST OF THIS SHIFT. SHE IS WILLING TO DRINK UNOPENED FRUIT JUICES.
[2019-12-03 09:30] LABS: U Amphetamine Screen Not Detected; U Barbituate Screen Not Detected; U Benzodiazapine Screen DETECTED; U Buprenorphine Screen Not Detected; U Cannabinoids Screen DETECTED; U Cocaine Screen Not Detected; U Methadone Screen Not Detected; U Methamphetamine Screen Not Detected; U Opiates Screen Not Detected; U Oxycodone Screen Not Detected; U Phencyclidine Screen Not Detected; U Propoxyphene Screen Not Detected
--- NOTE | 2019-12-03 11:24 | NUR ---
Pt. in bed resting doing much better offered prayers
--- NOTE | 2019-12-03 11:25 | NUR ---
pt. is doing fineb prayed for pt.
--- NOTE | 2019-12-03 13:11 | NUR ---
PATIENT TAKEN OFF 1:[address]'S ORDERS.
--- NOTE | 2019-12-03 16:39 | NUR ---
PATIENT BEHAVED LIKE HER "NORMAL" SELF TODAY. CONTINUES TO HAVE DELUSIONAL THOUGHTS OF SCABIES ALL OVER AND INSIDE OF HER. SHE REFUSES TO EAT DUE TO THE FEAR OF BEING POISONED BY THE FOOD WITH MORE SCABIES. SHE CAN BE PLEASANT AND COOPERATIVE WITH STAFF, HOWEVER IN A MOMENT HER SWITCH WILL FLIP AND SHE BECOMES ANXIOUS, IRRITABLE AND IRRATIONAL. CAN BE DIFFICULT TO REDIRECT. THE PATIENT IS CURRENTLY TAKING A SHOWER, REMOTELY PILOTED VEHICLE CONTROLLER IN BATHROOM WITH HER. HER VITALS HAVE BEEN STABLE. NO OTHER ACUTE CHANGES NOTED OR REPORTED DURING THIS SHIFT. WILL CONTINUE TO MONITOR AND PROVIDE CARE NEEDED.
--- NOTE | 2019-12-03 19:10 | NUR ---
ASSUMED CARE RECEIVED REPORT FROM GOLDEN MORENO. ASSUMED CARE OF PT. PT SITTING UP IN BED AT THIS TIME, NO S/S ACUTE DISTRESS NOTED. RESPS EVEN AND UNLABORED. EXPLAINED PLAN OF CARE TO PT. PT RECEPTIVE. DENIES NEEDS AT THIS TIME. CALL LIGHT, POSSESSIONS IN REACH, WILL CONTINUE TO MONITOR.
--- NOTE | 2019-12-03 20:11 | NUR ---
RN IN ROOM ADMINISTERING PT MEDICATIONS, PT VISIBLY PARANOID, USING COLORFUL LANGUAGE. PT STATING HER LAUNDRY IS CONTAMINATED WITH SCABIES, WELL HER ENTIRE BODY, STATING THE SCABIES ARE CRAWLING ALL OVER HER ENTIRE BODY. PT REPORTS THOUGHTS OF KILLING SELF, NO IMMINENT THREATS TO SAFETY NOTED AT THIS TIME. ENVIRONMENT FREE FROM HARMFUL OBJECTS. PT COOPERATIVE WITH CARES AT THIS TIME. WILL CONTINUE TO MONITOR.
--- NOTE | 2019-12-04 03:50 | NUR ---
SHIFT SUMMARY PT HAS HAD AN UNEVENTFUL NIGHT. HAD PERIODS OF PARANOIA AND AGITATION AT THE BEGINNING OF SHIFT. HAS REMAINED ASLEEP T/O REMAINDER OF NIGHT. NO ACUTE CHANGES IN CONDITION NOTED, ENVIRONMENT REMAINS FREE FROM HARMFUL OBJECTS. CALL LIGHT, POSSESSIONS IN REACH. WILL CONTINUE TO MONITOR PT SAFETY AND PROVIDE CARE NEEDED UNTIL DAY RN ASSUMES CARE.
--- NOTE | 2019-12-04 07:41 | NUR ---
PATIENT USED THE PHONE THIS MORNING WITH THE RN SUPERVISION. PATIENT STATES SHE CALLED THE HEALTH DEPARTMENT AND COMPLAINED ABOUT NOT BEING TREATED FOR SCABIES. PATIENT IS COOPERATIVE. HER CLOTHES HAVE BEEN TAKEN TO THE LAUNDRY ROOM TO BE WASHED. THE PHONE HAS BEEN REMOVED FROM THE PATIENT'S ROOM. THE BATHROOM DOOR IS LOCKED.
--- NOTE | 2019-12-04 09:00 | NUR ---
PATIENT ANSWERED "YES" TO HAVING A PLAN TO KILL HERSELF AND STATES SHE HAS A PLAN AND HAS PREPARED IN SOME WAY, ACCORDING TO HER, TO COMMIT SUICIDE. WILL NOTIFY DR. ALMENDAREZ.
--- NOTE | 2019-12-04 10:46 | NUR ---
PATIENT IS ON THE PHONE AT THIS TIME. RN IS SUPERVISING.
--- NOTE | 2019-12-04 11:07 | NUR ---
DR. THOMAS SAW THE PATIENT THIS MORNING. A NEW ORDER FOR NYSTATIN POWDER HAS BEEN PLACED FOR BENEATH THE BREASTS.
--- NOTE | 2019-12-04 13:32 | NUR ---
Pt. is lying in bed ,still confused encouraged pt. and offered prayers .
--- NOTE | 2019-12-04 15:48 | NUR ---
DR. THOMAS NOTIFIED OF PATIENT REFUSING ALL FOOD AND ONLY DRINKING SMALL AMOUNT OF FLUID. DR. THOMAS ALSO NOTIFIED OF [facility] RN SAYING THE PATIENT HAD AN OUTPATIENT IMAGING APPOINTMENT FOR HER ABDOMEN. DR. ALMENDAREZ PLACED THE PATIENT ON HIGH RISK SUICIDED PRECAUTIONS, A SITTER IS IN THE ROOM WATCHING THE PATIENT AT THIS TIME.
--- NOTE | 2019-12-04 17:24 | NUR ---
PATIENT IS ALERT AND ORIENTED TO SELF AND PLACE. SHE HAS DELUSIONS OF SCABBIES ON HER BODY. SHE BELIEVES SHE HAS SCABBIES AND THAT THE STAFF HERE IS INTENTIONALLY NOT TREATING HER FOR SCABBIES. HAS PLACED THE PATIENT BACK ON HIGH RISK SUICIDE PRECAUTIONS. THERE IS A 1:1 SITTER IN THE ROOM WITH THE PATIENT. PATIENT HAS REFUSED BREAKFAST AND LUNCH TODAY. SHE HAS ONLY CONSUMED TWO CRANBERRY JUICE DRINKS TODAY. DR. THOMAS NOTIFIED OF THIS. WILL CONTINUE TO MONITOR.
--- NOTE | 2019-12-04 18:40 | NUR ---
Initial spiritual care note: Carlota was calm at first, but escalated to anger as she told me about FBI plots, a Nile Lori conspiracy, and the "untreated scabies thats gonna kill me." I was unable to calm her or get her to speak about her past. She has a dtr who she wants to "get all the money when I ." She also stated that she wishes she could . I will remain available.
--- NOTE | 2019-12-04 22:54 | NUR ---
Patient very animated tonight. She is now convinced that the FBI was inside the fischer hanging microphones to listen to everything she says. Carlota appeared to be very happy about the prospect of having a CT abdomen tomorrow morning. Tylenol given for lower abdomen pain with a decrease in pain to a tolerable level. Patient remains a high suicide risk. Sitter and safety checks in place.
[2019-12-05 05:05] LABS: Hematocrit 42.5 % (33.0-51.0); Hemoglobin 14.2 g/dL (11.5-16.0); Mean Corpuscular HGB 29.2 pg (26.0-34.0); Mean Corpuscular HGB Conc 33.4 g/dL (31.5-36.5); Mean Corpuscular Volume 87 fL (80-100); Mean Platelet Volume 9.9 fL (9.1-12.4); Platelet Count 420 K/mm3 (150-400); RDW Coefficient Variation 13.4 % (11.7-14.2); Red Blood Cell Count 4.86 M/mm3 (3.80-5.20); White Blood Cell Count 5.49 K/mm3 (4.00-11.30)
[2019-12-05 05:26] LABS: Albumin, Blood 3.5 g/dL (3.4-5.0); Anion Gap 5 mmol/L (6-16); Blood Urea Nitrogen 10 mg/dL (8-24); Bun/Creatinine Ratio 10.9 (12.0-20.0); CO2, Blood 26 mmol/L (21-32); Calcium, Blood 9.2 mg/dL (8.5-10.1); Chloride, Blood 108 mmol/L (98-108); Creatinine, Blood 0.92 mg/dL (0.40-1.00); Glomerular Filtration Rate >60 (60-); Glucose, Blood 90 mg/dL (70-99); Phosphorus, Blood 4.2 mg/dL (2.5-4.9); Potassium, Blood 3.6 mmol/L (3.5-5.5); Sodium, Blood 139 mmol/L (136-145)
--- NOTE | 2019-12-05 07:19 | NUR ---
SALON CUSTOMER EXPERIENCE SPECIALIST SUMMARY Patient was quite animated and frustrated early in the evening, however, after receiving her HS medications and a dose of Tylenol, she slept very well. Sitter present in room the entire shift. Woke patient at 0500 to begin process of starting IV for CT abdomen. Several attempts by adjunct professor of law and this RN were unsuccessful. Patient was tearful as she thought she would not be able to have CT performed. Patient calmed when I reminded her that Chao from CT ensured us that if she only had oral OR IV contrast, it would still be more clear than none. Patient finished contrast at 0715 this morning, and was looking forward to receive results this afternoon from hospitalist. PATIENT AGAIN REFUSED SCHEDULED ZYPREXA AT HS. (5th night in the row)
--- NOTE | 2019-12-05 08:56 | NUR ---
Patient refuses breakfast tray this shift, it was offered but she did not want it at all. She stated" I will not eat as long as I continue to have scabies" " I will not feed the bugs to continue to allow them to survive" I offered little things to her like yougurt or jello and she declined.
--- NOTE | 2019-12-05 09:38 | NUR ---
yPatient asked to use the phone, phone was connected for her and she began yto make calls. After making several calls, the last call she made she began to get very upset and was vey verbally abusive on the phone and had very fowl language and was threatning the other person and was demanding an adress and phone number. When she go off the phone I unplugge it. At one point during the conversation the RN had to come in and tell her to calm down.
--- NOTE | 2019-12-05 11:29 | NUR ---
SHE COMPLETED HER CT SCAN THIS AM. SHE CONTINUES TO REFUSE TO EAT D/T PARANOIA. SHE HAD 1 SHORT NAP BUT BEFORE AND AFTER SHE IS UPSET, SWEARING ON THE PHONE AND STILL C/O SCABIES ON HER BODY AND IN HER CLOTHES. AN EMPLOYEE FROM [employer] IS HERE WITH HER NOW. SHE IS VERY AGITATED.
--- NOTE | 2019-12-05 11:45 | NUR ---
Patient is requesting that no visitors come here to see here espically from [facility]. She said if thr show up again she will get very upset. RN notified.
--- NOTE | 2019-12-05 12:38 | NUR ---
ROUNDED. PATIENT WANTS ANTIBIOTICS. SAID IF SHE WOULD EAT MAYBE SHE WOULD ORDER ANTIBIOTICS.
--- NOTE | 2019-12-05 13:11 | NUR ---
I LEFT A MESSAGE FOR THAT GRIFFIN ATE 100% OF HER LUNCH.
--- NOTE | 2019-12-05 14:35 | NUR ---
SHE IS IN THE SHOWER. SITTER PRESENT NEAR BATHROOM WITH DOOR LAW.
--- NOTE | 2019-12-05 14:48 | NUR ---
SHE IS SCREAMING AFTER THE SHOWER THAT HER STOMACH HURTS AND SHE HAS BLEEDING ULCERS. I GAVE HER THE ONE TIME TRISTON NOW AT 1448 THAT SHE REFUSED THIS AM.
--- NOTE | 2019-12-05 16:44 | NUR ---
ASLEEP. SHE SAID EARLIER THAT SHE ALWAYS GETS A YEAST INFECTION WHEN SHE TAKES ANTIBIOTICS. I COMMUNICATED THIS TO . SHE WILL ADDRESS IT TOMORROW.
--- NOTE | 2019-12-05 18:08 | NUR ---
Patient did not eat dinner this shift due to not being awake enough at this time. RN notified.
--- NOTE | 2019-12-05 18:12 | NUR ---
SHE ATE 1 MEAL TODAY (LUNCH). SHE THEN STARTED ON ANTIBIOTICS FOR HER MILD DIVERTICULITIS PER HER OWN REQUEST. SHE IS ASLEEP. SITTER IN ROOM. WILL STRONGLY ENCOURAGE DINNER INTAKE WHEN SHE AWAKENS. UNFORTUNATELY THE ONLY THING SHE HAS WANTED TO DRINK TODAY IS JUICES. CT ABD/PELVIS WAS DONE FIRST THING THIS MORNING. SHE HAS RECEIVED BENADRYL ONCE AND ATARAX ONCE PRN. SHE HAS HAD LABILE MOODS AND WAS SO VEBALLY ABUSIVE ON THE TELEPHONE A COUPLE OF TIMES TODAY THAT HER PHONE PRIVALEDGES HAVE BEEN TAKEN AWAY PER . SHE MADE AN AGREEMENT WITH TODAY TO EAT SO THAT SHE CAN TAKE HER ANTIBIOTICS.
--- NOTE | 2019-12-06 00:06 | NUR ---
Very agitated at beginning of shift commander. Screaming obcinities and slapping the bed. So upset she was out of breath when this RN entered the room. She was angry that she got the dinner she did with gravy on her foods as it was likely filled with scabies. She yelled that she would "be suing for that too". Discussed need for patient to tone down her voice and language as there were very ill people on unit who deserve to rest in order to recover. Patients response was that she was dying too, and they wouls have to "get over it".
--- NOTE | 2019-12-06 04:23 | NUR ---
BRANCH CONTROLLER SUMMARY Carlota able to sleep through the night after around 2200. Suicidal ideation still at a high risk level. Patient making copious notes about her suspicians regarding FBI, bugs, and using her as a "vector". States she is going to shabnam everyone involved. She did eat 50% of her dinner, and a turkey sandwich after dinner before receiving her cipro and flagyl at .
--- NOTE | 2019-12-06 09:04 | NUR ---
SHE ATE 100% OF BREAKFAST, HAD A BM THAT SHE FLUSHED AND WENT BACK TO THE BED. SHE CONTINUES TO REFUSE SLIPPERS BUT WON'T WALK ON THE FLOOR. SHE STANDS ON A BATH BLANKET AND SCOOTS THAT ACROSS THE FLOOR WITH HER UNDER HER FEET. DURING MED PASS SHE DROPPED ALL HER PILLS ON THE FLOOR. I WENT TO THE [facility] FOR ALL NEW ONES AND ORDERED HER LITHIUM FROM THE PHARMACY. HER MOOD IS CONTENTIOUS BUT BASICALLY COOPERATIVE. SHE ASKED FOR BENADRYL WITH HER AM MEDS.
--- NOTE | 2019-12-06 12:42 | NUR ---
SHE IS TAKING A NAP AFTER SHE ATE LUNCH. SITTER ALWAYS PRESENT. KARLOS CALLED EARLIER. SHE DECLINED THE CALL. SHE IS STILL NOT ALLOWED TO INITIATE ANY PHONE CALL. SHE DOES NOT HAVE A PHONE. SHE HAS HAD NORMAL FORMED BROWN BM TODAY. NO SIGN OF BLEEDING.
--- NOTE | 2019-12-06 13:00 | NUR ---
REGARDING HER ASSESSMENT DOCUMENTATIOM SHE REFUSES TO BE TOUCHED WITH A STETHASCOPE FOR ASSESSMENT. SHE ALLOWS TO LISTEN THOUGH. NO AUDIBLE RESP.PROBLEM. NO SIGNS OF CARDIAC PROBLEMS. SHE IS EATING TODAY AND TAKING HER MEDICATIONS.
--- NOTE | 2019-12-06 16:12 | NUR ---
SHE HAS HAD SHORT OUTBURSTS OF ANGER OR DISCONTENT TODAY, THEN GOES TO SLEEP OR WORKS ON HER NOTES.
--- NOTE | 2019-12-06 16:54 | NUR ---
RAPID COVID SWAB OBTAINED.
--- NOTE | 2019-12-06 18:15 | NUR ---
SHE IS GETTING INTO THE SHOWER. HER COVID TEST RESULTS ARE NEGATIVE. SHE SAYS SHE STILL CURRENTLY THINKS AND PLANS SUICIDE BUT NO ATTEMPT TODAY. SHE HAS HAD MULTIPLE SHORT OUTBURSTS OF ANGER AND FOUL LANGUAGE BUT SETTLES HERSELF DOWN. SHE HAS EATEN WELL AND TAKEN MEDICATIONS PRESCRIBED. SHE CONTINUES TO TALK OF SCABIES AND WASHES HER JUICE CONTAINERS BEFORE SHE OPENS THEM, AND WON'T WALK ON THE BARE FLOOR. SHE WON'T TAKE HER PILLS IF WE OPEN THE PKG'S. SHE OPENS THEM D/T PARANOIA. SITTER PRESENT CONTINUOUSLY.
[2019-12-06] MEDS ORDERED: ALBU90OI INH (21:34)
--- NOTE | 2019-12-07 07:40 | NUR ---
SHIFT SUMMARY PATIENT WAS COOPERATIVE THIS SHIFT. REFUSED 2100 ZYPREXA CLAIMING SHE WAS ALLERGIC TO IT. TALKED A LOT ABOUT SCABIES BEING EVERYWHERE AND THE FBI SPYING ON HER. NO OTHER ISSUES NOTED. PATIENT SLEPT THE ENTIRE NIGHT. CALL LIGHT WITHIN REACH. REPORT GIVEN TO ONCOMING RN.
--- NOTE | 2019-12-07 18:42 | NUR ---
PT WITH SEVERAL EPISODES OF YELLING, SCREAMING AND CUSSING AT STAFF, REFUSING MEALS AT TIMES, ASKING FOR DIFFERENT FOOD. 1:1 SITTER REMAINS, NO ACUTE CHANGES NOTED THIS SHIFT, WILL CONTINUE TO MONITOR AND REPORT TO ONCOMING RN
--- NOTE | 2019-12-08 06:10 | NUR ---
SHIFT SUMMARY PATIENT ALERT, STILL HAVING PARANOID DELUSIONS ABOUT SCABIES, PARASITES, AND THE FBI. PATIENT WAS COOPERATIVE. SLEPT WELL OVERNIGHT. BED IN LOWEST POSITION. CALL LIGHT WITHIN REACH. REPORT GIVEN TO ONCOMING RN.
--- NOTE | 2019-12-08 12:45 | NUR ---
PT REPORTS EMESIS, CLEAR LIQUID AND UNDIGESTED FOOD, MEDICATIONS ARE VISIBLE. APPROX 200 ML. WILL MONITOR
--- NOTE | 2019-12-09 06:24 | NUR ---
SHIFT SUMMARY PATIENT STILL EXPERIENCING CONSTANT PARANOID DELUSIONS AND OCCASIONAL HALLUCINATIONS. NO ACUTE EVENT OVERNIGHT. BED IN LOWEST POSITION WITH WHEELS LOCKED. CALL LIGHT WITHIN REACH. REPORT GIVEN TO ONCOMING RN.
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
--- NOTE | 2019-12-09 08:38 | NUR ---
REFUSING BP RECHECK PATIENT IS REFUSING HER BLOOD PRESSURE TO BE RECHECKED FOR ACCURACY.
--- NOTE | 2019-12-09 09:26 | NUR ---
DURING SHIFT ASSESSMENT, PT SHOWED THIS RN WHERE "SCABIES HAVE BEEN ENTERING AND EXITING TO MATE" AND THEY (SCABIES) COME BACK AFTER MATING THROUGH THESE BUMPS AND HOLES AGAIN. PATIENT POINTED TO HER BREAST FOLDS, REBA/GROIN AREA, POSTERIOR BILATERAL UPPER ARMS, AND POSTERIOR BILATERAL LOWER LEGS. PT ALSO CLAIMS SCABIES HAVE CAUSED A CRUSTED AREA ON HER L ELBOW. TO NOTE: PINKISH BREAST FOLDS, BUMPS IN UPPER AND LOWER ARMS AND LEGS, AND DISCOLORED DRY SKIN APPEARING TO BE ECZEMA-LIKE ON L ELBOW. PT STATES DRY HANDS ARE THE RESULTS OF SCABIES' CRUSTING EFFECT AND MENTIONS SPRAYING LYSOL ONTO L HANDS TO "SMOOTH IT OUT AND KILL THE SCABIES". PT ASSERTS SHE SEES SCABIES COMING OUT OF HER L HAND WHEN SHE SPRAYS WITH LYSOL. PT ALSO STATES SHE SPRAYS "WEED BE GONE TO THE BACK OF MY ARMS TO GET THEM OUT" TOO ASSERTING THAT HER SKIN HAS BECOME SMOOTHER FROM SPRAYING WEED BE GONE ON IT. PT DISCUSSED MOLE ON HER R HAND CLAIMING THERE ARE ANTENNAS AND LEGS COMING OUT OF IT. WILL CONTINUE TO MONITOR.
--- NOTE | 2019-12-09 14:56 | NUR ---
Met pt. in bed brushing her mouth she reports dpoing fine and adds there bad days and good days, encouraged pt and prayed
--- NOTE | 2019-12-09 18:11 | NUR ---
Shift Summary Patient had been extremely agitated this morning using foul language toward staff. After finishing shift assessment, patient appeared to be more appropriate with conversations. Still experiencing paranoid delusions regarding having scabies and parasites in her body. Up to bathroom independently, sitter at bedside with constant visual of patient. No changes in patient condition. Will continue to monitor.
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
--- NOTE | 2019-12-10 09:33 | NUR ---
Patient did not want to eat breakfast this morning screaming "I will not eat any of that damn food infested with scabies! I will not take any medications without eating any food!" This RN offered snacks from pantry for which patient was agreeable to sealed cheeses, declined all others. Patient also asked for shaving cream to "condition my hair so I don't have to cut it off!" When offered some conditioner, patient refused. Having snacks in the room. 1:1 sitter at bedside with complete visual of patient. Will return to offer meds and continue to monitor.
--- NOTE | 2019-12-10 11:04 | NUR ---
Met pt in bed resting she reports doing well encouraged pt. and prayed for her.
--- NOTE | 2019-12-10 11:26 | NUR ---
JOHN FROM [facility] AT BEDSIDE TO INVESTIGATE QUALIFICATION FOR COMMITTMENT TO PSYCH FACILITY.
--- NOTE | 2019-12-10 17:42 | NUR ---
Shift Summary A/Ox4. Demeanor has been more pleasant today. Only had little bouts of anger, but pleasant to talk to. No changes with assessment, no acute concerns. Patient eagerly awaiting parasitic test result. Appetite is great. Will continue to monitor.
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
--- NOTE | 2019-12-11 13:47 | NUR ---
Pt. in bed relaxed ,she reports not much change encouraged pt.,gave advice offred prayers and spiritual support.
--- NOTE | 2019-12-11 17:29 | NUR ---
ALERT. PARANOID. STS " WORKS FOR THE [employer]" AND SHE HAS SEEN HER BY HER APARTMENT [place]. PATIENT STS SHE "HAS SCABIES ; IN HER MOUTH, ON HER SKIN, IN HER HAIR, IN HER PUBIC HAIR AND ON HER BUTT". POINTS TO 3 SM BUMPS RT LATERAL THIGH WITH SM DARK SPOT ON ONE TO "WORMS".AREA LOOKS LIKE VARICOSE VEINS. PATIENT PUT SHAVING CREAM ON HER HAIR AND LEFT IT THERE FOR AWHILE. YELLS OFTEN. FAIRLY COOPERATIVE WITH MEDS. 1:1 SITTER AND CAMERA ON. STS YES TO ALL QUESTIONS ON S.I. SHEET. STS WANTS TO TAKE BRAVECTA FOR HER WORMS AND ASKS IF IT WILL LAST FOR 3 MONTHS. ADVISED THAT MED IS NOT FORMULATED FOR HUMANS. TM
--- NOTE | 2019-12-12 04:13 | NUR ---
SHIFT SUMMARY: 44 Y/O FEMALE RESTED COMFORTABLY ALL SHIFT WITH SITTER AT SIDE FOR SAFETY; PT PARANOID AND CONTINUES TO REQUEST BE ALLOWED OPEN ALL MEDICATIONS FROM PACKAGES WITH THIS NURSE PRESENT AFTER SCANNING TASK PERFORMED; PT ALSO REQUESTS TO DRINK CRANBERRY OR ORANGE JUICE VIA CONTAINERS THAT SHE HAS OPENED HERSELF; PT OCCASIONALLY VOICED HAVING VISUAL AND AUDITORY HALLUCINATIONS; PT MINIMALLY INTERACTS WITH NURSING STAFF ENTIRE SHIFT; DENIES PAIN OR NAUSEA; BED LOW POSITION WITH CALL LIGHT AT SIDE.
[2019-12-12 09:30] LABS: Hematocrit 42.4 % (33.0-51.0); Hemoglobin 13.8 g/dL (11.5-16.0); Mean Corpuscular HGB 29.5 pg (26.0-34.0); Mean Corpuscular HGB Conc 32.5 g/dL (31.5-36.5); Mean Corpuscular Volume 91 fL (80-100); Mean Platelet Volume 9.5 fL (9.1-12.4); Platelet Count 315 K/mm3 (150-400); RDW Coefficient Variation 13.9 % (11.7-14.2); RDW Standard Deviation 46.5 fL (35.1-46.3); Red Blood Cell Count 4.68 M/mm3 (3.80-5.20); White Blood Cell Count 6.91 K/mm3 (4.00-11.30)
[2019-12-12 09:57] LABS: Albumin, Blood 3.2 g/dL (3.4-5.0); Anion Gap 4 mmol/L (6-16); Blood Urea Nitrogen 15 mg/dL (8-24); Bun/Creatinine Ratio 19.4 (12.0-20.0); CO2, Blood 24 mmol/L (21-32); Calcium, Blood 8.8 mg/dL (8.5-10.1); Chloride, Blood 113 mmol/L (98-108); Creatinine, Blood 0.77 mg/dL (0.40-1.00); Glomerular Filtration Rate >60 (60-); Glucose, Blood 92 mg/dL (70-99); Phosphorus, Blood 3.4 mg/dL (2.5-4.9); Potassium, Blood 4.4 mmol/L (3.5-5.5); Sodium, Blood 141 mmol/L (136-145)
--- NOTE | 2019-12-12 18:20 | NUR ---
ALERT. DELUSIONAL. "SCABIES ARE EATTING ALL MY FOOD." "RN FROM THE OTHER NIGHT HAS MUNCHAUSENS AND HER IS UP IN THE CEILLING ." HAS BEEN COOPERATIVE WITH FEW OUTBURSTS TODAY. TALKATIVE AND SOMETIMES MAKES SENCE, BUT MOST OF TIMES TALKS ABOUT VISUAL HALLUCINATIONS. STEADY GAIT IN ROOM. CAMERA ON. 1:1 SITTER. NO IV ASSESS. UNLABORED RESPIRATIONS. TM.
--- NOTE | 2019-12-12 20:16 | NUR ---
PT RESTING COMFORTABLY IN BED; CHEERFUL; SITTER AT SIDE.
--- NOTE | 2019-12-13 03:52 | NUR ---
SHIFT SUMMARY: 44 Y/O FEMALE RESTED COMFORTABLY ALL SHIFT WITHOUT ANY BEHAVIOR ISSUES; PT VOICED SHE WISHED SHE WAS IN A BODY BAG; PT CONTINUES TO BE PARANOID AT TIMES AND CONTINUES TO FOCUS ONLY ON SUBJECT OF HER ; DENIES PAIN OR NAUSEA; PT ON CAMERA OBSERVATION AND 1:1 SITTER FOR SUICIDAL PRECAUTIONS; UP AD GRACIELA IN ROOM WITH GAIT SLOW AND STEADY; BED LOW POSITION WITH CALL LIGHT AT SIDE.
--- NOTE | 2019-12-13 07:34 | NUR ---
PT BRUSHED TEETH IN BED USED WHOLE BOTTTLE OF MOUTH WASH TO RINSE MOUTH, USED BATH BLANKETS ON FLOOR TO WALK ON TO USE TOILET, AGITATED DOESNT WANT ANYONE TO KEEP AN EYE ON HER WHILE IN BATHROOM, AFTER PT WASHED HANDS SHE WAS HITTING PAPER TOWEL HODGE CUSSING, LAID BACK DOWN AFTER, PT IS CURRENTLY TRYING TO SLEEP, CALL LIGHT IN REACH.
--- NOTE | 2019-12-13 08:03 | NUR ---
suicide assessment: patient irritable; high si; 1:1 l-o-s sitter in place; remote monitoring in place. tm.
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
--- NOTE | 2019-12-13 14:39 | NUR ---
PT HAD QUESTIONS FOR THE NURSE, NURSE WAS NOTIFIED, PT ASKED TO HAVE BEDSIDE TABLE CALL LIGHT AND SIDE RAIL OF BED WIPED DOWN WITH SANI- WIPE, PT KEEPS TALKING AND YELLING AT "MAN IN THE CEILING WITH WHITE CAR", CALL LIGHT IN REACH.
--- NOTE | 2019-12-13 18:11 | NUR ---
SHIFT SUMMARY: NO ACUTE CHANGES TO REPORT THIS SHIFT. PT A&O; PSYCHOSIS; COOPERATIVE WITH CARE. HIGH SI; 1:1 SITTER & REMOTE MONITORING. PT TAKES PO MEDS AFTER BEING GIVEN UNOPENED PACKAGES & UNDER OBSERVATION BY THIS NURSE. MEDICATED FOR PAIN PER EMAR. AWAITING PLACEMENT IN IN-PATIENT PSYCH FACILITY. ILIANA.
--- NOTE | 2019-12-14 04:23 | NUR ---
SHIFT SUMMARY: 44 Y/O FEMALE RESTED COMFORTABLY ALL SHIFT WITH 1:1 SITTER AT SIDE FOR SUICIDAL PRECAUTIONS: PT STILL VOICED SHE DESIRES TO ALL THE TIME; PT HAD ONE BRIEF OUTBURST OF YELLING MIDDLE OF NIGHT WHICH QUICKLY SUBSIDED AFTER LESS 30 SECONDS; DENIES PAIN OR NAUSEA; PT STILL VERY PARANOID AND CONTINUES TO REFUSE TO TAKE ZYPREXA AT EVENING DOSE; BED LOW POSITION WITH CALL LIGHT AT SIDE.
--- NOTE | 2019-12-14 16:34 | NUR ---
SUMMARY PT CONTINUES TO STATE SI, STATE DESIRE TO , STATE FORMING PLAN, MAKES MANY BIZARRE STATEMENTS R/T. CONTINUES TO STATE DELUSIONS OF BUGS CRAWLING ON HER BODY, "SCABIES". SHE ALLOWED PARTIAL SKIN ASSESSMENT, NO RASH NOTED, SHE DECLINE TOTAL ASSESSMNET. DR LANGSTON WAS IN TO SEE HER THIS AM, ORAL ANTIBX STOPPED TODAY. VSS. WE CONTINUE TO AWAIT INPT PSYCHE TRANSFER, DR LANE FOLLOWING. 1:1 SUICIDE STTER CONTINUES. PT IS UP IND TO CHAY w STAFF MX. SHE DECLINED SHOWER TODAY. THIS AM SITTER STATE PT HAD PIECES OF PLASTIC FORK IN HER BED, CLOSER MONITOR OF ITEMS ENTERING RM REQUIRED, PT REDIRECTED.
--- NOTE | 2019-12-15 04:39 | NUR ---
SHIFT SUMMARY NO ACUTE CHANGES TO REPORT THIS SHIFT PT CONTINUES TO REPORT SUICIDAL IDEATION AND CONTINUES TO REPORT SCABIES AND THAT BUGS ARE CRAWLING ON HER. PT PROVIDED WITH REASSURANCE THAT SHE DID NOT HAVE ANY BUGS CRAWLING ON HER. PT HAS BEEN PLESANT AND COOPERATIVE WITH CARE THIS SHIFT. VITALS ARE STABLE AND ASSESSMENT UNCHANGED. BED IN LOWEST POSITION, CALL LIGHT WITHIN REACH.
--- NOTE | 2019-12-15 10:04 | NUR ---
0900 Patient began to talk about how she was going to swallow a bolt and was asking what would happen to her if she did swallow it and what would we do to her if we did swallow it. I et her know I am not sure because thats never happened before but it was not goo for her and please dont. I asked if she has one and she said no. She went on to let me know she has tried to strangle heself with a part on the bed multipe times which i have not seen her do. She also let me know that there is multiple things in this room that she can find that she can dismantle and try to hurt herself with. I asked someone to sit and take my place while I talked to an RN as i ahd a funny feeling about what she was saying, Granted she like to mess with lia but this did not sit right with me. As I was geting up she simantled the blue handle part of the bed and tore it off and thre it across the room. RN was notified as I was starting talking to her and the wind projects supervisor was up here and talked to her and decison was made to remove the bed from room and matress wa put on floor for patient. She is currenttly sitting and laying on bench in room and states she refuses to lay on bed on the floor.
[2019-12-15 10:15] LABS: Anion Gap 5 mmol/L (6-16); Blood Urea Nitrogen 12 mg/dL (8-24); Bun/Creatinine Ratio 16.7 (12.0-20.0); CO2, Blood 25 mmol/L (21-32); Calcium, Blood 9.3 mg/dL (8.5-10.1); Chloride, Blood 110 mmol/L (98-108); Creatinine, Blood 0.72 mg/dL (0.40-1.00); Glomerular Filtration Rate >60 (60-); Glucose, Blood 102 mg/dL (70-99); Potassium, Blood 4.6 mmol/L (3.5-5.5); Sodium, Blood 140 mmol/L (136-145)
[2019-12-15 11:54] LABS: Lithium 0.52 mmol/L (0.60-1.20)
--- NOTE | 2019-12-15 12:18 | NUR ---
Patient was offered a shower and she declined as she stated she did not have the energy to take one at this time. I offered to help and offered to put a chair in the shower for her. She stated that if she does take one it will be at night so that it will help her sleep.
--- NOTE | 2019-12-15 12:39 | NUR ---
RACHAEL DUQUE UPDATED INFO FAXED EARLIER TODAY. THEY JUST RETURNED A CALL AND DENIED HER BECAUSE THEY DON'T TAKE HER INSURANCE.
--- NOTE | 2019-12-15 15:25 | NUR ---
SUMMARY PT CONTINUES TO AWAIT TRANSFER TO IN PSYCHE HOSP. ASSOCIATE PROFESSOR OF LITERACY HAS BEEN IN CONTACT & FAXED CHART NOTES HOWEVER @ THIS TIME NO AVAIL BED. THIS AM PT CONTINUES TO STATE SUICIDAL IDEATION, SHE TOOK PARTS OFF OF BED THREATENING THAT SHE COULD HURT HERSELF w ITEMS. NURS SURVR NOTIFIED. BED & REMAINING FURNITURE REMOVED FROM ROOM/SUPVR, MATTRESS PLACED ON FLOOR. 1:1 SITTER REMAINS @ ALL X'S. PT MAKES MANY BIZZARE STATEMENTS T/O DAY, DESCRIBES VISUAL HALLUCINATIONS & SI. DR MANZO CHECK LABS. LITHIUM LEVEL LOW, DOSE INCREASED. PT HAS HAD PERIODS OF FLAT, DEPRESSED BEHAVIOR, @ OTHER X'S LAUGHING & INTERACTING w STAFF. VSS.
--- NOTE | 2019-12-15 17:47 | NUR ---
1730 Patient was in bathroom and doing oral care and brushed teeth and used mothwash however she did rinse her mouth with an entire bottle of mouth wash but she did spit it out everytime. RN notified.
--- NOTE | 2019-12-16 06:00 | NUR ---
SHIFT SUMMARY PT HAS BEEN APPROPRIATE WITH STAFF THIS SHIFT. SHE HAS RESTED MOST OF THE NIGHT WITHOUT EVENT. CONTINUES TO COMPLAIN OF ITCHING AND CONTINUES TO REPORT THAT BUGS ARE CRAWLING ON HER. SHE ALSO REPORTS SOB WITH EXERTION AND STATES THIS IS NEW FOR HER. RESP APPEAR E/U ON RA AND SATS ARE WITHIN NORMAL LIMITS. LITHIUM DOSE INCREASED PER MD ORDERS AND SHE WAS STARTED ON AN ADDITIONAL 300 MG OF LITHIUM EXTENDED RELEASE AT 2100. PT CONTINUES TO REPORT SI. 1:1 SITTER IN ROOM T/O SHIFT. PT REFUSED AM LABS. LAB WILL ASK PT AGAIN ONCE SHE IS MORE AWAKE. NO ACUTE CHANGES IN ASSESSMENT. BED IN LOWEST POSITION, CALL LIGHT WITHIN REACH.
--- NOTE | 2019-12-16 06:49 | NUR ---
PT REFUSED MORNING VITALS, NURSE NOTIFIED
[2019-12-16 09:38] LABS: BASOPHILS ABSOLUTE AUTO 0.07 K/mm3 (0.00-0.23); BASOPHILS PERCENT AUTO 1 % (0-2); EOSINOPHILS ABSOLUTE AUTO 0.28 K/mm3 (0.00-0.68); EOSINOPHILS PERCENT AUTO 4 % (0-6); Hematocrit 45.5 % (33.0-51.0); Hemoglobin 14.9 g/dL (11.5-16.0); IMMATURE GRAN ABSOLUTE AUTO 0.03 K/mm3 (0.00-0.10); IMMATURE GRAN PERCENT AUTO 0 % (0-1); LYMPHOCYTES ABSOLUTE AUTO 1.44 K/mm3 (0.84-5.20); LYMPHOCYTES PERCENT AUTO 21 % (21-46); MONOCYTES ABSOLUTE AUTO 0.58 K/mm3 (0.16-1.47); MONOCYTES PERCENT AUTO 8 % (4-13); Mean Corpuscular HGB 29.9 pg (26.0-34.0); Mean Corpuscular HGB Conc 32.7 g/dL (31.5-36.5); Mean Corpuscular Volume 91 fL (80-100); Mean Platelet Volume 9.5 fL (9.1-12.4); NEUTROPHILS ABSOLUTE AUTO 4.61 K/mm3 (1.96-9.15); NEUTROPHILS PERCENT AUTO 66 % (41-73); Platelet Count 361 K/mm3 (150-400); RDW Standard Deviation 47.4 fL (35.1-46.3); Red Blood Cell Count 4.99 M/mm3 (3.80-5.20); White Blood Cell Count 7.01 K/mm3 (4.00-11.30)
--- NOTE | 2019-12-16 18:07 | NUR ---
SHIFT SUMMARY. A&OX4, INDEPENDENT IN ROOM. CONTINUES WITH HIGH RISK SUICIDE PRECAUTIONS WITH 1:1 SITTER AND CAMERA. PT CONTINUES WITH PARNOID AND DELUSIONAL THOUGHTS, UNABLE TO REORIENT PT. PT CONTINUES TO EXPRESS CONCERN THAT SHE HAS SCABIES THAT ARE IN HER SKIN AND WITHIN HER GI TRACT, REORIENTATION IS FUTILE. PT C/O PAIN TO BACK AND ABD, PAIN MANAGED WELL WITH PRN MOTRIN. PT C/O ITCHING ONCE THIS SHIFT, MANAGED WELL WITH BENADRYL. PT WITH INCREASED AGITATION THIS AFTERNOON, PRN HYDROXIZINE EFFECTIVE. NO NEW CHANGES OR CONCERNS.
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
--- NOTE | 2019-12-16 20:45 | NUR ---
PT BP IS HYPOTENSIVE. CAPACITY MANAGEMENT SPECIALIST ATTEMPTED TO TAKE IT THREE TIMES BUT THE PATIENT WAS NOT HOLDING STILL TO GET A CORRECT BP. AFTER THAT SHE DID NOT WANT US TO RETAKE IT. DENIED ANY DIZZINESS OR SIGNS OF HYPOTENSION.
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
--- NOTE | 2019-12-17 10:56 | NUR ---
Met pt. lying in bed and her nurse in the room attending to her needs encouraged pt. and offerede prayers and spiritual support.
[2019-12-17 11:35] LABS: Lithium 0.93 mmol/L (0.60-1.20)
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
--- NOTE | 2019-12-17 17:08 | NUR ---
PT TRANSFERED TO [facility] TODAY BY AMBULANCE. PT ALL PERSONAL BELONGINGS WERE COLLECTED, BUT PT STATED SHE HAD A TARP AND BOTTLES OF LITHIUM AND IBUPROFEN BEING HELD. CHECKED WITH BOTH SECURITY AND PHARMACY AND DID NOT LOCATE ITEMS. PT WAS COOPERATIVE WITH THE CHANGE OF FACILITY AND SIGNED PAPERS. PT HAS BEEN AO WELL PARANOID. PT CONTINUES TO NOT WANT THINGS OPENED PRIOR TO BEING GIVEN TO HER AND DOES NOT WANT PERSONAL CONTACT IF IT CAN BE AVOIDED. PT HAD A BM TODAY, BUT STILL WAS COMPLAINING OF CONSTIPATION AND A SUPPOSITORY WAS ORDERED. PT REFUSED AFTER STATING SHE WOULD TAKE ONE. OVER ALL SHE WAS COOPERATIVE TODAY. CALLED REPORT TO HELENE AFTER PT WAS LOADED IN STRETCHER. NO DISTRESS NOTED UPON DEPARTURE. GLENN
--- NOTE | 2019-12-17 17:40 | NUR ---
CALLED [facility] TO GIVE REPORT AND WAS TOLD NO REPORT WAS NEEDED FROM THIS OPEN HEARTH MELTER. ALL INFORMATION WHICH WAS NEEDED HAD ALREADY BEEN RECIEVED.
== END 2019-12-17 16:22 ==
LOC: ER 08:40 → EOR 08:41 → ER 08:41 → EOR 08:41 → MEDS 16:58
PROVIDERS: Family Medicine; Internal Medicine; Nurse Practitioner Acute Care; Physician Assistant; Psychiatry & Neurology Psychiatry; ADMIT Internal Medicine
DX: F23 Brief psychotic disorder (principal); K57.92 Diverticulitis of intestine, part unspecified, without perforation or abscess without bleeding; B37.2 Candidiasis of skin and nail; N17.9 Acute kidney failure, unspecified; E86.0 Dehydration; E87.6 Hypokalemia; Z79.899 Other long term (current) drug therapy; Z20.828 Contact with and (suspected) exposure to other viral communicable diseases
CPT/HCPCS: 36415; 74176; 80048; 80053; 80069; 80178; 83880; 84443; 84703; 85025; 85027; 87177; 87209; 96361; 96372; 99285; A9270; A9270-GY; G0378; G0480; J1650; J7030; J7120; Q0163; U0002